=== PATIENT | female | born 1945 | race Caucasian/White ===

== ENCOUNTER 2018-04-01 06:39 | Inpatient (IN) | payer MEDICARE, SELFPAY ==
[2018-04-01] VITALS (19 sets, daily range): BP systolic 122–157; BP diastolic 65–80; PULSE 68–93; RESP 14–29; TEMP 36.2–37.3; O2SAT 95–98; BMI 36.8; BMI 36.1
--- NOTE | 2018-04-01 06:54 | ED.DCSUM_ITS ---
- ER Visit Summary Date of Service: 04/01/18 Chief Complaint: Chest tightness History of Present Illness: The patient is a 72 F who presents for 2-1/2 hours of chest tightness. Patient woke up with the discomfort. She has tightness all across her anterior chest with aching between her shoulder blades, right greater than left. No radiation into the arms, abdomen or neck. Pain is worse with breathing. Patient has associated shortness of breath. She has not taken any aspirin or other medications. She tried to go back to sleep to see if it would get better but it has persisted. No worsening or improvement. Patient has no cardiac history but has history of hypertension and high cholesterol. Family history of coronary artery disease. Patient does not smoke. Patient had recent changes to her blood pressure medications. Patient has no history of VTE, no active cancer in the last 6 months, no recent travel or surgery. No exogenous hormone use. Physical Examination: Vital signs: afebrile, hemodynamically stable, no hypoxia on room air General: well nourished, well developed, in mild distress the patient appears uncomfortable Skin: warm, dry, no rash, no pallor HEENT: normocephalic and atraumatic; PERRL, EOMI, moist mucous membranes Cardiovascular: regular rate and rhythm without murmurs, no peripheral edema, 2 + pulses all distal extremities, including bilat DP pulses Respiratory: No increased work of breathing, lungs are clear to auscultation bilaterally, no rales, rhonchi or wheezing, well-healed surgical incision on the right posterior shoulder Abdominal: Abdomen is soft, nontender with normoactive bowel sounds, no guarding or rebound, no masses MSK: Moves all extremities, no deformities, normal strength Neuro: Awake and alert, oriented ?4. No facial droop, sensation and motor function intact and symmetric Test Results: Abnormal Lab Results 04/01/18 04/01/18 06:47 06:47 WBC 6.6 RBC 5.01 Hgb 13.4 Hct 41.6 MCV 83.0 MCH 26.7 L MCHC 32.2 RDW 13.8 RDW Differential 41.5 Plt Count 199 MPV 10.6 Immature Gran % (Auto) 0.000 Neut % (Auto) 41.2 L Lymph % (Auto) 39.1 [place] % (Auto) 15.6 H Eos % (Auto) 3.5 Baso % (Auto) 0.6 Absolute Neuts (auto) 2.7 Absolute Lymphs (auto) 2.58 Total Counted Not Reportable Sodium 138 Potassium 4.0 Chloride 103 Carbon Dioxide 25.0 Anion Gap 10 BUN 15 Creatinine 0.79 Estim Creat Clear Calc 41.40 Est GFR (MDRD) Af Amer 92 Est GFR (MDRD) Non-Af 76 BUN/Creatinine Ratio 19.0 Glucose 104 Calcium 9.3 Troponin I 0.085 H Clinical Impression(s) from Imaging Studies Chest X-Ray 04/01/18 06:55 IMPRESSION: No acute pulmonary findings. Electronically Signed: Dat Hobson MD at 7:27 EDT Tel , Service support , Medications Given Sodium Chloride () 1,000 mls @ 250 mls/hr IV .Q4H BREA Last Admin: 04/01/18 07:05 Dose: 250 mls/hr Discontinued Medications Aspirin (Aspirin, Baby) 324 mg PO X1 STA Stop: 04/01/18 06:50 Last Admin: 04/01/18 07:05 Dose: 324 mg Nitroglycerin (Nitrostat) 0.4 mg SUBLINGUAL Q5M BREA Stop: 04/01/18 07:11 Last Admin: 04/01/18 07:17 Dose: 0.4 mg Admin: 04/01/18 07:11 Dose: 0.4 mg Admin: 04/01/18 07:06 Dose: 0.4 mg Nitroglycerin (Nitrobid) 1 inch TRANSDERM. X1 ONE Stop: 04/01/18 07:24 Emergency Department Course and Treatment: Patient presents with symptoms concerning for acute coronary syndrome. Pulmonary embolism and aortic dissection are also on the differential as potentially life-threatening causes of her discomfort. EKG showed a sinus rhythm without any ischemic changes. Right-sided EKG was performed and showed no ischemic changes in the right-sided leads. Patient was given aspirin and nitro for pain. She had had improvement of her pain down to 2/3:10 nitro. Nitro paste was placed on her chest. Labs showed no leukocytosis. No electrolyte derangements. Troponin was elevated at 0.085. Patient was discussed with Dr. De Luna, because of the pain between the shoulder blades, we discussed the possibility this could also be an aortic dissection. It was determined that a CTA would be performed prior to any further treatment for acute coronary syndrome. If the CTA is negative for dissection, patient will be started on Lovenox and will be admitted to the hospitalist service. Dr. De Luna will perform as a cardiac catheterization on Tuesday. Patient was updated as to this plan. Final disposition is pending the results of the CTA. Treatment Plan: [] Disposition: [] Impression: acute chest pain, elevated troponin, concern for NSTEMI This note was generated with [employer] dictation software. It may contain incorrect words, spelling, and punctuation that were not noted in review of the chart prior to signing ED Disposition - Plan for ED Patient: Chief Complaint: Chest Pain Referrals: Boo Thomas Jr., MD [Primary Care Provider] -
[2018-04-01 06:57] LABS: Absolute Lymphocyte Count 2.58 X10^3/ul (0.83-4.51); Absolute Neutrophil Count 2.7 X10^3/uL (2.0-7.7); Basophil# 0.04 X10^3/uL; Basophil% 0.6 % (0-1); Eosinophil# 0.23 X10^3/uL; Eosinophils% 3.5 % (0-5); Hematocrit 41.6 % (37-47); Hemoglobin 13.4 g/dl (12.0-15.0); Lymphocyte # 2.58 X10^3/ul (4.0); Lymphocyte % 39.1 % (19-41); Mean Corp Hgb Conc 32.2 g/gl (32-36); Mean Corpuscular Hgb 26.7 pg (27.0-32.0); Mean Platelet Vol. 10.6 fl (6.2-12.0); Monocyte# 1.03 X10^3/uL; Monocyte% 15.6 % (0-10); Neutrophil # 2.72 X10^3/uL (2.7-7.7); Neutrophil % 41.2 % (47-70); POSITIVE COUNT NO; POSITIVE DIFFERENTIAL NO; POSITIVE MORPHOLOGY NO; Platelet Count 199 K/mm3 (150-450); RBC Distribution Width CV 13.8 % (11.6-14.6); RBC Distribution Width SD 41.5 fl (35.1-43.9); Red Blood Count 5.01 M/mm3 (4.2-5.4); White Blood Count 6.6 K/mm3 (4.4-11.0)
[2018-04-01] MEDS: Aspirin 81 MG TAB.CHEW 324 MG PO (07:05)
[2018-04-01] MEDS: 0.9% Normal Saline 1,000 ML 250 ML IV (07:05)
[2018-04-01 07:18] LABS: Anion Gap 10 (5-15); BUN 15 mg/dL (7-18); Calcium,Total 9.3 mg/dL (8.5-10.1); Chloride 103 mmol/L (98-107); Creatinine, Serum 0.79 mg/dL (0.55-1.02); EST Glomerular Filtration Rate 76 mL/min (>60); Est Glom Filt Rate - Afr Amer 92 mL/min (>60); Glucose 104 mg/dL (74-106); Sodium Level 138 mmol/L (136-145)
[2018-04-01] MEDS: Nitroglycerin Oint 1 INCH PACKET TRANSDERM. (07:48)
[2018-04-01] MEDS: Enoxaparin 100 MG/ML Syringe 90 MG SC ×3 (08:59→21:56)
[2018-04-01] MEDS: Clopidogrel Bisulfate 300 MG Tablet PO (11:17)
[2018-04-01] MEDS: hydroCHLOROthiazide 25 MG Tablet PO (11:18)
[2018-04-01] MEDS: Metoprolol Tartrate 50 MG Tablet PO ×2 (11:19→21:56)
[2018-04-01] MEDS: amLODIPine 10 MG Tablet PO (11:19)
[2018-04-01] MEDS: Multivitamins,Therapeutic Tablet 1 TABLET PO (11:19)
--- NOTE | 2018-04-01 12:11 | PCM.CONS.C ---
Problem List (1) Chest pain Status: Acute (2) Troponin I above reference range Status: Acute Reason for Consult Date of Consultation: 04/01/18 Reason for Consultation: Unstable angina, chest pain, hypertension History of Present Illness: The patient is a 72 year old F, nondiabetic, with hypertension, hypercholesterolemia, no tobacco history, no previous known coronary or CVA history. Patient was recently changed from valsartan due to the recall to losartan, but had some side effect issues. Her medicines have been adjusted and this morning developed significant chest pain which was rated an 8 out of 10 in severity, radiating between her shoulder blades. She also had associated shortness of breath as well. She was brought to [facility] ER where she received 3 sublingual nitroglycerin, which completely resolved her chest pain and has some very mild mid scapular back pain. Her blood pressure initially was hypertensive but now has normalized. A CTA of her chest was performed which was negative for pulmonary emboli and aortic dissection. Her initial troponin was 0.085, and decreased to 0.080. EKG performed this morning showed normal sinus rhythm with possible old inferior posterior wall myocardial infarction and poor R-wave progression across the precordium on one EKG. No acute ST segment changes noted. 2D echo with Doppler was performed this morning which demonstrated moderate concentric LVH, normal LV function of 65%, and an RVSP of approximately 31 mmHg. [] Past Medical History Allergies/Adverse Reactions: Allergies No Known Allergies Allergy (Verified 04/01/18 06:39) Home Medications: Ambulatory Orders Medication Instructions Recorded Amlodipine Besylate [Norvasc] 10 mg PO DAILY 04/01/18 Calcium Carbonate [Calcium] 1,200 mg PO DAILY 04/01/18 Hydrochlorothiazide [Hctz] 25 mg PO DAILY 04/01/18 Multivitamins,Therapeutic 1 tablet PO DAILY 04/01/18 [Multivitamin] Olmesartan Medoxomil 20 mg PO DAILY 04/01/18 Simvastatin 20 mg PO QHS 04/01/18 Smoking Status: Never smoker Review of Systems - Review of Systems General: Denies: Fever, Night Sweats, Fatigue Cardiovascular: Reports: Chest Discomfort, Chest Discomfort at Rest, Shortness of Breath, Shortness of Breath at Rest. Denies: Orthopnea, PND, Peripheral Edema, Palpitations, Lightheadedness, Dizziness, Near Syncope, Syncope Respiratory: Denies: Cough, Sputum Production, Hemoptysis Gastrointestinal: Denies: Hematemesis, Hematochezia, Melena Genitourinary: Denies: Dysuria, Hematuria Skin: Denies: Rash Subjectve: Patient laying in bed, no acute distress. Objective: Vital Signs Temp Pulse Resp BP Pulse Ox 99.1 F 82 18 133/66 H 98 04/01/18 10:31 04/01/18 11:19 04/01/18 10:31 04/01/18 10:31 04/01/18 10:31 Oxygen Flow Rate (L/min) 2 Oxygen Delivery Method Room Air Weight: 197 lb 5.019 oz Body Mass Index (BMI) 36.1 General: Awake, Alert, Oriented x 3 HEENT: PERRL, EOMI, Sclera Non Icteric Neck: Supple, Good ROM, No Lymph Node Enlargement Lungs: Clear to auscultation Cardiovascular: Regular Rhythm, Normal S1, Normal S2, No Murmurs, No Rubs, No Gallops Vascular: No Carotid Bruits, Normal Femoral Pulses, Normal Radial Pulses, Normal Dorsalis Pedal Pulse, Normal Posterior Tibial Pulses Abdomen: Bowel Sounds Present, Soft, Non Tender, No HSM, No Organomegaly Extremities: No Cyanosis, No Clubbing, No edema Neurological: No Focal Motor or Sensory Deficit 04/01/18 10:35: Troponin I 0.080 H Rhythm: EKG: As above ECHO: As above Stress Test: Cardiac Cath: PCI: CT Surgery: Holter monitor: EPS: PPM: CXR: Chest CT Scan: Assessment/Plan 1. Unstable angina: The patient appears to have hypertension induced unstable angina with minimally elevated troponins, EKG suggesting possible old inferior posterior wall myocardial infarction with echocardiogram showing relatively intact LV function with an EF around 65% and normal RVSP. CTA of her chest is negative for pulmonary embolism and aortic dissection. Her symptoms were resolved with sublingual nitroglycerin ?3. At this point I recommend the patient continue her rule out for myocardial infarction with a third set of troponins. Recommend baby aspirin, Plavix loading 300 mg ?1 now, followed by 75 mg p.o. daily. In light of the patient's age, family history of coronary disease, abnormal EKG, and indeterminate troponins in the face of unstable angina, I recommend that she undergo a diagnostic coronary angiogram this upcoming Tuesday. In the meantime she will continue losartan 50 mg p.o. daily, metoprolol 50 mg p.o. twice daily, baby aspirin. We can titrate up her losartan to adjust for hypertensive episodes. Recommend continuing hydrochlorothiazide 25 mg p.o. daily. In addition until we do her catheterization would recommend nitroglycerin paste 1 inch every 6 hours as well as Lovenox 1 mg/kg subcu twice daily until the day of catheterization this upcoming Tuesday. 2. Hyperlipidemia: Recommend obtaining a fasting lipid profile. Given her family history and risk factor profile recommend LDL at least less than 100 and less than 70 if it is found that she have significant coronary disease. Continue Lipitor. 3. Thank you very much for the opportunity to participate in the cardiac care of your patient. Consultation time took place between 11:30 AM and 12 PM. Code Visit Inpatient E&M: 84350 Init Hosp L2
--- NOTE | 2018-04-01 13:38 | PCM.HP.STD ---
Problem List (1) Unstable angina Status: Acute History of Present Illness Date of Admission: 04/01/18 Chief Complaint: chest pain The patient is a 72 year old F presents with chest pain at 0300. CP was midsternal and went between her shoulder blades. Received NTG in ED. Now CP has resolved. Never had this before. No history of CAD. Few weeks ago, patient was taken out of valsartan given the recent FDA warnings. Patient was then put on low Felix and just caused her to be fatigued over the past few days has been on olmesartan. [] Past Medical History Medical History: Medical History (Last Updated 04/01/18 @ 13:41 by Mihai Christianson DO) HTN (hypertension) I10 Allergies No Known Allergies Allergy (Verified 04/01/18 06:39) Home Medications: Ambulatory Orders Medication Instructions Recorded Amlodipine Besylate [Norvasc] 10 mg PO DAILY 04/01/18 Calcium Carbonate [Calcium] 1,200 mg PO DAILY 04/01/18 Hydrochlorothiazide [Hctz] 25 mg PO DAILY 04/01/18 Multivitamins,Therapeutic 1 tablet PO DAILY 04/01/18 [Multivitamin] Olmesartan Medoxomil 20 mg PO DAILY 04/01/18 Simvastatin 20 mg PO QHS 04/01/18 Lives: Alone Smoking Status: Never smoker Tobacco Use: Non-smoker Alcohol: None Drugs: None - *Family History Paternal History Items: Heart Disease - at 49 Review of Systems Constitutional: Reports: Malaise. Denies: Anorexia, Chills, Fever, Night Sweats Eyes: Denies: Blurred vision, Eyelid Inflammation HEENT: Denies: Difficulty Hearing, Hard of Hearing Cardiovascular: Reports: Chest Pain. Denies: Edema Respiratory: Denies: Cough, Shortness of Breath Gastrointestinal: Denies: Abdominal Pain, Nausea, Vomiting Genitourinary: Denies: Dysuria Musculoskeletal: Denies: Joint Pain, Joint Tenderness Skin: Denies: Rash, Wounds Neurological: Denies: Numbness, Tingling, Focal weakness Psychiatric: Denies: Anxiety, Depression Hematologic/ Lymphatic: Denies: Easy Bruising, Easy Bleeding, Hx of blood clot Comment: All review of systems are negative except as mentioned in the history of present illness and the other review of systems. VTE Information - Inpt Only VTE Present on Admission: No VTE Pharm Prophylaxis ordered?: Yes Patient Problems: Active and Suspected Problems Chest pain (Acute) Troponin I above reference range (Acute) Unstable angina (Acute) - Physical Exam General: Alert, Cooperative, No apparent distress HEENT: Atraumatic, Normocephalic Oral: Moist Mucosa, No Gingival or Mucosal Lesions/ Ulcerations Neck: No Nodes, Thyroid Normal Size and Texture Lungs: Clear to auscultation, Normal air movement, No rhonchi, No wheeze Cardiovascular: Regular rate, Regular Rhythm, Normal S1, Normal S2, No murmurs Abdomen: Bowel Sounds Present, Soft, Non Tender, Non-Distended, No Hepato-splenomegaly Extremities: No edema, No Calf Tenderness Skin: No rashes, No breakdown Musculoskeletal: No Tenderness to Palpation of Joints or Extremities, No Muscle Wasting Neurological: Muscle tone normal, Coordination normal Psych/Mental Status: Normal Affect, Appropriate Vital Signs Temp Pulse Resp BP Pulse Ox 37.3 C 82 18 133/66 H 98 04/01/18 10:31 04/01/18 11:19 04/01/18 10:31 04/01/18 10:31 04/01/18 10:31 Oxygen Flow Rate (L/min) 2 Oxygen Delivery Method Room Air Weight: 89.5 kg Body Mass Index (BMI) 36.1 Intake and Output for Last 24 Hours 03/30/18 03/31/18 04/01/18 23:59 23:59 23:59 Intake Total 360 / 360 Balance 360 / 360 Laboratory Tests Past 24 Hrs 04/01/18 04/01/18 10:35 12:54 Troponin I 0.080 H 0.090 H Laboratory Results - last 24 hr 04/01/18 04/01/18 04/01/18 06:47 06:47 10:35 WBC 6.6 RBC 5.01 Hgb 13.4 Hct 41.6 MCV 83.0 MCH 26.7 L MCHC 32.2 RDW 13.8 RDW Differential 41.5 Plt Count 199 MPV 10.6 Immature Gran % (Auto) 0.000 Neut % (Auto) 41.2 L Lymph % (Auto) 39.1 [place] % (Auto) 15.6 H Eos % (Auto) 3.5 Baso % (Auto) 0.6 Absolute Neuts (auto) 2.7 Absolute Lymphs (auto) 2.58 Total Counted Not Reportable Sodium 138 Potassium 4.0 Chloride 103 Carbon Dioxide 25.0 Anion Gap 10 BUN 15 Creatinine 0.79 Estim Creat Clear Calc 41.40 Est GFR (MDRD) Af Amer 92 Est GFR (MDRD) Non-Af 76 BUN/Creatinine Ratio 19.0 Glucose 104 Calcium 9.3 Troponin I 0.085 H 0.080 H 04/01/18 12:54 WBC RBC Hgb Hct MCV MCH MCHC RDW RDW Differential Plt Count MPV Immature Gran % (Auto) Neut % (Auto) Lymph % (Auto) [place] % (Auto) Eos % (Auto) Baso % (Auto) Absolute Neuts (auto) Absolute Lymphs (auto) Total Counted Sodium Potassium Chloride Carbon Dioxide Anion Gap BUN Creatinine Estim Creat Clear Calc Est GFR (MDRD) Af Amer Est GFR (MDRD) Non-Af BUN/Creatinine Ratio Glucose Calcium Troponin I 0.090 H Clinical Impression(s) from Imaging Studies Chest X-Ray 04/01/18 06:55 IMPRESSION: No acute pulmonary findings. Electronically Signed: Dat Hobson MD at 7:27 EDT Tel , Service support , Chest CTA 04/01/18 07:25 IMPRESSION: 1. No CTA demonstrated pulmonary embolism or arterial dissection. 2. Hiatal hernia. 3. Multiple hepatic cystic lesions. Electronically Signed: My Partida MD at 8:39 EDT , Service support , Assessment/Plan All Active Problems Chest pain (Acute) Troponin I above reference range (Acute) Unstable angina (Acute) 1. Unstable angina Troponins were slightly elevated 0.085. Loaded with Plavix, started on aspirin. Patient also started on weight-based Lovenox. Seen by cardiology and the plan is for a left heart catheterization on the . Score of 7 in MACY score of 3 2. Hypertension Continue with her home medications 3. DVT prophylaxis: Patient is currently anticoagulated Code Visit Inpatient E&M: 23689 Init Hosp L3
[2018-04-01] MEDS: 0.9% NaCl Peripheral Flush Adult/Peds IV (19:47)
[2018-04-01] MEDS: Atorvastatin Calcium 10 MG Tablet PO (21:56)
[2018-04-02] VITALS (12 sets, daily range): BP systolic 113–127; BP diastolic 65–70; PULSE 58–72; RESP 14–18; TEMP 36.3–36.9; O2SAT 95–96
[2018-04-02] MEDS: Acetaminophen 325 MG Tablet 650 MG PO (02:48)
[2018-04-02 07:25] LABS: Anion Gap 13 (5-15); BUN 13 mg/dL (7-18); BUN/Creat Ratio 16.5 RATIO (10-20); Calcium,Total 8.9 mg/dL (8.5-10.1); Chloride 103 mmol/L (98-107); Cholesterol 140 mg/dL (200); Creatinine, Serum 0.79 mg/dL (0.55-1.02); EST Glomerular Filtration Rate 77 mL/min (>60); Est Glom Filt Rate - Afr Amer 93 mL/min (>60); Glucose 95 mg/dL (74-106); High Density Lipoprotein 48 mg/dL; Potassium 4.1 mmol/L (3.5-5.1); Sodium Level 140 mmol/L (136-145); Triglycerides 225 mg/dL; Very Low Density Lipoprotein 45 mg/dL (5-40)
[2018-04-02] MEDS: Enoxaparin 100 MG/ML Syringe 90 MG SC ×2 (08:41→22:01)
[2018-04-02] MEDS: Aspirin E.C. 81 MG Tablet PO (08:41)
[2018-04-02] MEDS: Metoprolol Tartrate 50 MG Tablet PO ×2 (08:41→22:01)
[2018-04-02] MEDS: Multivitamins,Therapeutic Tablet 1 TABLET PO (08:41)
[2018-04-02] MEDS: hydroCHLOROthiazide 25 MG Tablet PO (08:41)
[2018-04-02] MEDS: Calcium Carbonate 500 MG Tablet 1000 MG PO (08:42)
[2018-04-02] MEDS: amLODIPine 10 MG Tablet PO (08:42)
[2018-04-02] MEDS: Clopidogrel Bisulfate 75 MG Tablet PO (08:42)
--- NOTE | 2018-04-02 10:39 | PCM.PN.CARD ---
Subjectve: Patient doing well this morning, chest pain has completely resolved. Telemetry showed normal sinus rhythm, no ventricular arrhythmias. Objective: Vital Signs Temp Pulse Resp BP Pulse Ox 97.4 F L 72 18 126/67 H 95 04/02/18 08:45 04/02/18 08:45 04/02/18 08:45 04/02/18 08:45 04/02/18 08:45 Oxygen Flow Rate (L/min) 2 Oxygen Delivery Method Room Air Weight: 197 lb 5.019 oz Body Mass Index (BMI) 36.1 Intake and Output for Last 24 Hours 03/31/18 04/01/18 04/02/18 23:59 23:59 23:59 Intake Total 960 / 960 60 / 60 Balance 960 / 960 60 / 60 General: Awake, Alert, Oriented x 3 HEENT: PERRL, EOMI, Sclera Non Icteric Neck: Supple, Good ROM, No Lymph Node Enlargement Lungs: Clear to auscultation Cardiovascular: Regular Rhythm, Normal S1, Normal S2, No Murmurs, No Rubs, No Gallops Vascular: No Carotid Bruits, Normal Femoral Pulses, Normal Radial Pulses, Normal Dorsalis Pedal Pulse, Normal Posterior Tibial Pulses Abdomen: Bowel Sounds Present, Soft, Non Tender, No HSM, No Organomegaly Extremities: No Cyanosis, No Clubbing, No edema Neurological: No Focal Motor or Sensory Deficit 04/01/18 10:35: Troponin I 0.080 H 04/01/18 12:54: Troponin I 0.090 H 04/02/18 06:05: Sodium 140, Potassium 4.1, Chloride 103, Carbon Dioxide 24.0, Anion Gap 13, BUN 13, Creatinine 0.79, Est GFR (MDRD) Af Amer 93, Est GFR (MDRD) Non-Af 77, BUN/Creatinine Ratio 16.5, Glucose 95, Calcium 8.9, Triglycerides 225 H, Cholesterol 140, LDL Cholesterol 47, VLDL Cholesterol 45 H, HDL Cholesterol 48 04/02/18 06:05: Triglycerides Cancelled, Cholesterol Cancelled, LDL Cholesterol Cancelled, VLDL Cholesterol Cancelled, HDL Cholesterol Cancelled Rhythm: EKG: ECHO: Stress Test: Cardiac Cath: PCI: CT Surgery: Holter monitor: EPS: PPM: CXR: Chest CT Scan: Medical Necessity - Tobacco Use Smoking Status: Never smoker Tobacco Use: Non-smoker Assessment/Plan 1. Unstable angina: The patient appears to have hypertension induced unstable angina with minimally elevated troponins, EKG suggesting possible old inferior posterior wall myocardial infarction with echocardiogram showing relatively intact LV function with an EF around 65% and normal RVSP. CTA of her chest is negative for pulmonary embolism and aortic dissection. Her symptoms were resolved with sublingual nitroglycerin ?3. Patient's troponins were 0.085, 0.080, and 0.090. Recommend baby aspirin, Plavix loading 300 mg ?1 now, followed by 75 mg p.o. daily. In light of the patient's age, family history of coronary disease, abnormal EKG, and indeterminate troponins in the face of unstable angina, I recommend that she undergo a diagnostic coronary angiogram tomorrow morning. In the meantime she will continue losartan 50 mg p.o. daily, metoprolol 50 mg p.o. twice daily, baby aspirin. We can titrate up her losartan to adjust for hypertensive episodes. Recommend continuing hydrochlorothiazide 25 mg p.o. daily. Blood pressure is now optimized. In addition until we do her catheterization would recommend nitroglycerin paste 1 inch every 6 hours as well as Lovenox 1 mg/kg subcu twice daily until the day of catheterization this upcoming Tuesday. 2. Hyperlipidemia: Recommend obtaining a fasting lipid profile. Given her family history and risk factor profile recommend LDL at least less than 100 and less than 70 if it is found that she have significant coronary disease. Continue Lipitor. 3. Thank you very much for the opportunity to participate in the cardiac care of your patient. Left heart catheterization to follow tomorrow morning. Code Visit Inpatient E&M: 20556 Subs Hosp L2
--- NOTE | 2018-04-02 11:28 | PCM.PN.HOSP ---
Patient Problems: Active and Suspected Problems (Last Updated 04/01/18 @ 13:41 by Mihai Christianson DO) Chest pain (Acute) Troponin I above reference range (Acute) Unstable angina (Acute) Subjective: No further chest pain. Vitals/I&O's: Vital Signs Temp Pulse Resp BP Pulse Ox 36.3 C L 72 18 126/67 H 95 04/02/18 08:45 04/02/18 08:45 04/02/18 08:45 04/02/18 08:45 04/02/18 08:45 Oxygen Flow Rate (L/min) 2 Oxygen Delivery Method Room Air Weight: 89.5 kg Body Mass Index (BMI) 36.1 Intake and Output for Last 24 Hours 03/31/18 04/01/18 04/02/18 23:59 23:59 23:59 Intake Total 960 / 960 60 / 60 Balance 960 / 960 60 / 60 General: Alert, No apparent distress HEENT: Atraumatic, Normocephalic Oral: Moist Mucosa, No Gingival or Mucosal Lesions/ Ulcerations Neck: No Nodes, Thyroid Normal Size and Texture Lungs: Clear to auscultation, Normal air movement, No rhonchi, No wheeze Cardiovascular: Regular rate, Regular Rhythm, Normal S1, Normal S2, No murmurs Abdomen: Bowel Sounds Present, Soft, Non Tender, Non-Distended Extremities: No edema, No Calf Tenderness Laboratory Results 04/01/18 12:54: Troponin I 0.090 H 04/02/18 06:05: Sodium 140, Potassium 4.1, Chloride 103, Carbon Dioxide 24.0, Anion Gap 13, BUN 13, Creatinine 0.79, Estim Creat Clear Calc 41.40, Est GFR (MDRD) Af Amer 93, Est GFR (MDRD) Non-Af 77, BUN/Creatinine Ratio 16.5, Glucose 95, Calcium 8.9, Triglycerides 225 H, Cholesterol 140, LDL Cholesterol 47, VLDL Cholesterol 45 H, HDL Cholesterol 48 04/02/18 06:05: Triglycerides Cancelled, Cholesterol Cancelled, LDL Cholesterol Cancelled, VLDL Cholesterol Cancelled, HDL Cholesterol Cancelled Current Medications Acetaminophen (Tylenol) 650 mg PO Q6H PRN PRN PRN Reason: Mild Pain (1-3)/Temp > 100.7 F Last Admin: 04/02/18 02:48 Dose: 650 mg Amlodipine Besylate (Norvasc) 10 mg PO DAILY [facility] Last Admin: 04/02/18 08:42 Dose: 10 mg Aspirin (Ecotrin) 81 mg PO DAILY@0800 [facility] Last Admin: 04/02/18 08:41 Dose: 81 mg Atorvastatin Calcium (Lipitor) 10 mg PO QHS [facility] Last Admin: 04/01/18 21:56 Dose: 10 mg Calcium Carbonate (Tums) 1,000 mg PO DAILY [facility] Last Admin: 04/02/18 08:42 Dose: 1,000 mg Clopidogrel Bisulfate (Plavix) 75 mg PO DAILY [facility] Last Admin: 04/02/18 08:42 Dose: 75 mg Diphenhydramine HCl (Benadryl) 50 mg PO X1 ONE Stop: 04/03/18 08:01 Enoxaparin Sodium (Lovenox) 90 mg 1 mg/kg (90 mg) SC Q12 [facility] Last Admin: 04/02/18 08:41 Dose: 90 mg Hydrochlorothiazide (Hctz) 25 mg PO DAILY [facility] Last Admin: 04/02/18 08:41 Dose: 25 mg Sodium Chloride () 1,000 mls @ 0 mls/hr IV .Q0M [facility] PRN Reason: KVO Losartan Potassium (Cozaar) 50 mg PO DAILY [facility] Last Admin: 04/02/18 08:41 Dose: Not Given Magnesium Hydroxide (Milk Of Magnesia) 30 ml PO DAILY PRN PRN Reason: Constipation Metoprolol Tartrate (Lopressor (Beta David)) 50 mg PO BID [facility] Last Admin: 04/02/18 08:41 Dose: 50 mg Morphine Sulfate () 2 - 4 mg IV Q4H PRN PRN PRN Reason: MOD-SEVERE PAIN (4-10/10) Multivitamins (Multivitamin) 1 tablet PO DAILYCM [facility] Last Admin: 04/02/18 08:41 Dose: 1 tablet Nitroglycerin (Nitrostat) 0.4 mg SUBLINGUAL Q5M PRN PRN Reason: CHEST PAIN Ondansetron HCl (Zofran) 4 mg IV Q8H PRN PRN PRN Reason: NAUSEA Sodium Chloride () 5 - 30 ml IV UD PRN PRN Reason: SALINE FLUSH Last Admin: 04/01/18 19:47 Dose: 10 ml Medical Necessity - Tobacco Use Smoking Status: Never smoker Tobacco Use: Non-smoker Assessment/Plan All Active Problems (Last Updated 04/01/18 @ 13:41 by Mihai Christianson DO) Chest pain (Acute) Troponin I above reference range (Acute) Unstable angina (Acute) 1. Unstable angina Troponins were slightly elevated 0.09. Loaded with Plavix, started on aspirin. Patient also started on weight-based Lovenox. Seen by cardiology and the plan is for a left heart catheterization on the . Score of 7 in MACY score of 3 2. Hypertension stable Continue with her home medications 3. DVT prophylaxis: Patient is currently anticoagulated Code Visit Inpatient E&M: 91931 Subs Hosp L2
[2018-04-02] MEDS: Atorvastatin Calcium 10 MG Tablet PO (22:01)
[2018-04-03] VITALS (17 sets, daily range): BP systolic 105–124; BP diastolic 56–67; PULSE 58–78; RESP 16–18; TEMP 36.8–37; O2SAT 93–97
[2018-04-03 05:17] LABS: Bacteria 0 SEEN /hpf (None Seen); Mucous, Urine 0 SEEN /hpf (<or=2+); Squamous Epithelial Cells - UA 0 SEEN /hpf (5-10)
[2018-04-03] MEDS: Metoprolol Tartrate 50 MG Tablet PO (05:39)
[2018-04-03] MEDS: amLODIPine 10 MG Tablet PO (05:39)
[2018-04-03] MEDS: Clopidogrel Bisulfate 75 MG Tablet PO (05:39)
[2018-04-03] MEDS: Aspirin E.C. 81 MG Tablet PO (05:40)
[2018-04-03 05:42] LABS: Absolute Lymphocyte Count 1.85 X10^3/ul (0.83-4.51); Absolute Neutrophil Count 2.3 X10^3/uL (2.0-7.7); Basophil# 0.04 X10^3/uL; Basophil% 0.8 % (0-1); Eosinophils% 3.8 % (0-5); Hematocrit 40.1 % (37-47); Hemoglobin 13.2 g/dl (12.0-15.0); Lymphocyte # 1.85 X10^3/ul (4.0); Lymphocyte % 35.5 % (19-41); Mean Corp Hgb Conc 32.9 g/gl (32-36); Mean Corpuscular Hgb 27.3 pg (27.0-32.0); Mean Platelet Vol. 10.5 fl (6.2-12.0); Monocyte# 0.82 X10^3/uL; Monocyte% 15.7 % (0-10); Neutrophil % 44.2 % (47-70); Platelet Count 215 K/mm3 (150-450); RBC Distribution Width CV 13.9 % (11.6-14.6); RBC Distribution Width SD 41.9 fl (35.1-43.9); Red Blood Count 4.83 M/mm3 (4.2-5.4); White Blood Count 5.2 K/mm3 (4.4-11.0)
[2018-04-03 05:52] LABS: Anion Gap 13 (5-15); BUN 12 mg/dL (7-18); BUN/Creat Ratio 13.8 RATIO (10-20); Calcium,Total 9.2 mg/dL (8.5-10.1); Chloride 102 mmol/L (98-107); Creatinine, Serum 0.87 mg/dL (0.55-1.02); EST Glomerular Filtration Rate 68 mL/min (>60); Est Glom Filt Rate - Afr Amer 83 mL/min (>60); Estimated Creatinine Clearance 47.59 ml/min; Glucose 96 mg/dL (74-106); Sodium Level 142 mmol/L (136-145)
[2018-04-03 05:53] LABS: International Normalized Ratio 1.1
[2018-04-03 05:54] LABS: Partial Thromboplast Time 33.9 Seconds (24.1-36.2)
[2018-04-03 05:58] LABS: POSITIVE COUNT NO; POSITIVE DIFFERENTIAL NO; POSITIVE MORPHOLOGY NO
[2018-04-03 06:22] LABS: Color, Urine Yellow (Yellow); Glucose, Dipstick Normal (Normal); Ketone-Dipstick Negative (Negative); Leukocyte Esterase-Dipstick 500 /ul (Negative); Nitrite-Dipstick Negative (Negative); Occult Blood-Urine 250 /ul (Negative); Protein-Dipstick Negative (Negative); Urine Bilirubin Dipstick Negative (Negative); Urine Clarity Clear (Clear); Urine Urobilinogen Normal (Normal); Urine pH 6.5 (5.0 - 8.0)
[2018-04-03 06:51] LABS: Red Blood Cells-Urine 0-5 SEEN /hpf (0-5); White Blood Cells 5-10 SEEN /hpf (0-5)
[2018-04-03] MEDS: DiphenhydrAMINE 25 MG Capsule 50 MG PO (09:30)
--- NOTE | 2018-04-03 09:30 | NURSING ---
gave report to photo lab technician RN
[2018-04-03] MEDS: 0.9% NaCl Peripheral Flush Adult/Peds IV (09:33)
--- NOTE | 2018-04-03 09:40 | CASEMGMT ---
INSURANCE REVIEW for [facility] facilities if transfer is recommended. [facility], [facility], [facility], [facility], [facility] For further questions, please contact Case Management. Helena MATTAN RN ACM
--- NOTE | 2018-04-03 11:15 | CASEMGMT ---
RN CM Assessment completed. See Link -pt independent prior to admission. Plan is for heart cath today. No dc needs identified @ this time. Helena MATTAN RN ACM
--- NOTE | 2018-04-03 11:55 | PCM.DC ---
- Discharge Diagnoses Current Active Problems: Current Active and Chronic Problems (Last Updated 04/01/18 @ 13:41 by Mihai Christianson DO) Chest pain (Acute) Troponin I above reference range (Acute) Unstable angina (Acute) You will use the following diet at home:: Cardiac Your food should be the consistency of: Regular Your liquids should be the consistency of: Regular/Thin Discharge Activity: Return to Normal Activity May resume sexual activity in: No Restrictions Weight Bearing Status: Weight bearing as tolerated Call your doctor if you observe: Shortness of breath, Dizziness, Chest pain, Increased palpitations (irregular heartbeat) Allergies/Adverse Reactions: Allergies No Known Allergies Allergy (Verified 04/01/18 06:39) Medications to take at Discharge Amlodipine Besylate [Norvasc] 10 mg PO DAILY 04/01/18 Calcium Carbonate [Calcium] 1,200 mg PO DAILY 04/01/18 Hydrochlorothiazide [Hctz] 25 mg PO DAILY 04/01/18 Multivitamins,Therapeutic [Multivitamin] 1 tablet PO DAILY 04/01/18 Olmesartan Medoxomil 20 mg PO DAILY 04/01/18 Simvastatin 20 mg PO QHS 04/01/18 Aspirin E.C. [Ecotrin] 81 mg PO DAILY@0800 #30 tab 04/03/18 The following prescriptions were given: Aspirin E.C. [Ecotrin] 81 mg PO DAILY@0800 #30 tab Primary Care Physician: Boo Thomas Jr., MD [Primary Care Provider] - Please follow up with your Primary Care Physician in: one week Test Results: Test results from this visit will be discussed in further detail at your follow-up appointment, if applicable. Please Follow Up With: Matt De Luna MD When: two weeks Proposed Discharge Date: 04/03/18
--- NOTE | 2018-04-03 11:58 | PCM.DC.SUM ---
Discharge Date and Diagnosis Date of Admission: 04/01/18 Date of Discharge: 04/03/18 - Primary Discharge Diagnosis Active and Suspected Problems (Last Updated 04/01/18 @ 13:41 by Mihai Christianson DO) Chest pain (Acute) Troponin I above reference range (Acute) Unstable angina (Acute) Hospital Course and Treatment Imaging Results: Diagnostic Data Chest X-Ray 04/01/18 06:55 IMPRESSION: No acute pulmonary findings. Electronically Signed: Dat Hobson MD at 7:27 EDT Tel , Service support , Chest CTA 04/01/18 07:25 IMPRESSION: 1. No CTA demonstrated pulmonary embolism or arterial dissection. 2. Hiatal hernia. 3. Multiple hepatic cystic lesions. Electronically Signed: My Partida MD at 8:39 EDT , Service support , Laboratory Tests 04/01/18 04/01/18 04/01/18 06:47 06:47 10:35 WBC 6.6 RBC 5.01 Hgb 13.4 Hct 41.6 MCV 83.0 MCH 26.7 L MCHC 32.2 RDW 13.8 RDW Differential 41.5 Plt Count 199 MPV 10.6 Immature Gran % (Auto) 0.000 Neut % (Auto) 41.2 L Lymph % (Auto) 39.1 [place] % (Auto) 15.6 H Eos % (Auto) 3.5 Baso % (Auto) 0.6 Absolute Neuts (auto) 2.7 Absolute Lymphs (auto) 2.58 Total Counted Not Reportable PT INR APTT Sodium 138 Potassium 4.0 Chloride 103 Carbon Dioxide 25.0 Anion Gap 10 BUN 15 Creatinine 0.79 Estim Creat Clear Calc 41.40 Est GFR (MDRD) Af Amer 92 Est GFR (MDRD) Non-Af 76 BUN/Creatinine Ratio 19.0 Glucose 104 Calcium 9.3 Troponin I 0.085 H 0.080 H Triglycerides Cholesterol LDL Cholesterol VLDL Cholesterol HDL Cholesterol Urine Color Urine Clarity Urine pH Ur Specific [place] Urine Protein Urine Glucose (UA) Urine Ketones Urine Occult Blood Urine Nitrite Urine Bilirubin Urine Urobilinogen Ur Leukocyte Esterase Urine RBC Urine WBC Ur Squamous Epith Cells Urine Bacteria Urine Mucus 04/01/18 04/02/18 04/02/18 12:54 06:05 06:05 WBC RBC Hgb Hct MCV MCH MCHC RDW RDW Differential Plt Count MPV Immature Gran % (Auto) Neut % (Auto) Lymph % (Auto) [place] % (Auto) Eos % (Auto) Baso % (Auto) Absolute Neuts (auto) Absolute Lymphs (auto) Total Counted PT INR APTT Sodium 140 Potassium 4.1 Chloride 103 Carbon Dioxide 24.0 Anion Gap 13 BUN 13 Creatinine 0.79 Estim Creat Clear Calc 41.40 Est GFR (MDRD) Af Amer 93 Est GFR (MDRD) Non-Af 77 BUN/Creatinine Ratio 16.5 Glucose 95 Calcium 8.9 Troponin I 0.090 H Triglycerides 225 H Cancelled Cholesterol 140 Cancelled LDL Cholesterol 47 Cancelled VLDL Cholesterol 45 H Cancelled HDL Cholesterol 48 Cancelled Urine Color Urine Clarity Urine pH Ur Specific [place] Urine Protein Urine Glucose (UA) Urine Ketones Urine Occult Blood Urine Nitrite Urine Bilirubin Urine Urobilinogen Ur Leukocyte Esterase Urine RBC Urine WBC Ur Squamous Epith Cells Urine Bacteria Urine Mucus 04/03/18 04/03/18 04/03/18 04:00 05:15 05:15 WBC 5.2 RBC 4.83 Hgb 13.2 Hct 40.1 MCV 83.0 MCH 27.3 MCHC 32.9 RDW 13.9 RDW Differential 41.9 Plt Count 215 MPV 10.5 Immature Gran % (Auto) 0.000 Neut % (Auto) 44.2 L Lymph % (Auto) 35.5 [place] % (Auto) 15.7 H Eos % (Auto) 3.8 Baso % (Auto) 0.8 Absolute Neuts (auto) 2.3 Absolute Lymphs (auto) 1.85 Total Counted Not Reportable PT 14.0 INR 1.1 APTT 33.9 Sodium Potassium Chloride Carbon Dioxide Anion Gap BUN Creatinine Estim Creat Clear Calc Est GFR (MDRD) Af Amer Est GFR (MDRD) Non-Af BUN/Creatinine Ratio Glucose Calcium Troponin I Triglycerides Cholesterol LDL Cholesterol VLDL Cholesterol HDL Cholesterol Urine Color Yellow Urine Clarity Clear Urine pH 6.5 Ur Specific [place] 1.010 Urine Protein Negative Urine Glucose (UA) Normal Urine Ketones Negative Urine Occult Blood 250 H Urine Nitrite Negative Urine Bilirubin Negative Urine Urobilinogen Normal Ur Leukocyte Esterase 500 H Urine RBC 0-5 SEEN Urine WBC 5-10 SEEN Ur Squamous Epith Cells 0 SEEN Urine Bacteria 0 SEEN Urine Mucus 0 SEEN 04/03/18 05:15 WBC RBC Hgb Hct MCV MCH MCHC RDW RDW Differential Plt Count MPV Immature Gran % (Auto) Neut % (Auto) Lymph % (Auto) [place] % (Auto) Eos % (Auto) Baso % (Auto) Absolute Neuts (auto) Absolute Lymphs (auto) Total Counted PT INR APTT Sodium 142 Potassium 4.0 Chloride 102 Carbon Dioxide 27.0 Anion Gap 13 BUN 12 Creatinine 0.87 Estim Creat Clear Calc 47.59 Est GFR (MDRD) Af Amer 83 Est GFR (MDRD) Non-Af 68 BUN/Creatinine Ratio 13.8 Glucose 96 Calcium 9.2 Troponin I Triglycerides Cholesterol LDL Cholesterol VLDL Cholesterol HDL Cholesterol Urine Color Urine Clarity Urine pH Ur Specific [place] Urine Protein Urine Glucose (UA) Urine Ketones Urine Occult Blood Urine Nitrite Urine Bilirubin Urine Urobilinogen Ur Leukocyte Esterase Urine RBC Urine WBC Ur Squamous Epith Cells Urine Bacteria Urine Mucus Cardiology-Dr. De Luna Operations: None Procedures: 2-D Echocardiogram, Cardiac catheterization Summary of Care Provided: The patient is a 72 year old F with a history of high blood pressure. She was admitted by the ED on 04/01/2018 with complaint of chest pain which is midsternal Kyle radiated to between her shoulder blades. Chest pain resolved with administration of NTG in the ED. She hopkins no history of CAD and had recently been taken off valsartan due to FDA warnings. She was then started on losartan; however, this also caused her to be fatigued, so she was then started on olmesartan. Chest x-ray was negative and CT angiogram showed hiatal hernia with no evidence of pulmonary embolism or aortic dissection. Troponin was slightly elevated at 0.085. MACY score was 7. She was admitted and managed for unstable angina. She was loaded with Plavix and started on aspirin and started on therapeutic dose of Lovenox. Cardiology was consulted and she had a cardiac cath on 04/03/2018 which showed normal patent coronaries. Conclusions of N normal left ventricular size with normal wall motion and normal systolic function and nonobstructive coronary arteries. Plan per cardiology was for risk factor modification and indefinite use of aspirin. She will stop Plavix and continue antihypertension antilipid medications and follow-up. Patient was seen and examined today prior to discharge. She had no complaints and felt well. She denied any fever chills, any cough or chest pain, any shortness of breath, any abdominal pain, any diarrhea vomiting. Review of systems was otherwise negative. Labs and vitals were reviewed. o/e: Vital Signs Height 5 ft 2 in Weight: 197 lb 5.019 oz Weight in Pounds 197.3 lbs Pulse Ox 94 Temperature 98.3 F Pulse Rate 65 Respiratory Rate 16 Blood Pressure 105/59 Blood Pressure Position Semi-Fowlers []General: Alert, Cooperative, No apparent distress HEENT: Atraumatic, Normocephalic Oral: Moist Mucosa, No Gingival or Mucosal Lesions/ Ulcerations Neck: No Nodes, Thyroid Normal Size and Texture Lungs: Clear to auscultation, Normal air movement, No rhonchi, No wheeze Cardiovascular: Regular rate, Regular Rhythm, Normal S1, Normal S2, No murmurs Abdomen: Bowel Sounds Present, Soft, Non Tender, Non-Distended, No Hepato-splenomegaly Extremities: No edema, No Calf Tenderness Skin: No rashes, No breakdown Musculoskeletal: No Tenderness to Palpation of Joints or Extremities, No Muscle Wasting Neurological: Muscle tone normal, Coordination normal Psych/Mental Status: Normal Affect, Appropriate Plan is to discharge patient home today. She is continue taking amlodipine and hydrochlorothiazide as well as olmesartan. She is continue taking simvastatin 20 mg nightly. Patient was given a prescription for aspirin 81 mg daily. She is to follow-up with her primary care doctor in 1 week and follow-up with cardiology in 2 weeks for medications to be adjusted as needed. Home medications reviewed and reconciled prior to discharge. Discharge Diet: 2000 mg Sodium Diet Discharge Activity: Return to Normal Activity May resume sexual activity in: No Restrictions Weight Bearing Status: Weight bearing as tolerated Call your doctor if you observe: Shortness of breath, Dizziness, Chest pain, Increased palpitations (irregular heartbeat) Home Medications: Medications to take at Discharge Amlodipine Besylate [Norvasc] 10 mg PO DAILY 04/01/18 Calcium Carbonate [Calcium] 1,200 mg PO DAILY 04/01/18 Hydrochlorothiazide [Hctz] 25 mg PO DAILY 04/01/18 Multivitamins,Therapeutic [Multivitamin] 1 tablet PO DAILY 04/01/18 Olmesartan Medoxomil 20 mg PO DAILY 04/01/18 Simvastatin 20 mg PO QHS 04/01/18 Aspirin E.C. [Ecotrin] 81 mg PO DAILY@0800 #30 tab 04/03/18 Following Prescrptions Were Given to Patient: Aspirin E.C. [Ecotrin] 81 mg PO DAILY@0800 #30 tab Primary Care Physician: Boo Thomas Jr., MD [Primary Care Provider] - Please follow up with your Primary Care Physician in: one week Please Follow Up With: Matt De Luna MD When: two weeks Disposition: Home Minutes spent on discharge:: 40 Patient Condition:: Stable Medical Necessity - Tobacco Use Smoking Status: Never smoker Tobacco Use: Non-smoker Meaningful Use Info Meaningful Use Diagnoses (Choose all that apply): None applicable Code Visit Inpatient E&M: 47194 Disch Hosp
[2018-04-03] MEDS: Multivitamins,Therapeutic Tablet 1 TABLET PO (12:05)
[2018-04-03] MEDS: hydroCHLOROthiazide 25 MG Tablet PO (12:05)
[2018-04-03] MEDS: Calcium Carbonate 500 MG Tablet 1000 MG PO (12:05)
--- NOTE | 2018-04-03 15:05 | NURSING ---
walked patient in hallway, bedrest complete, tolerated well, dressing c/d/i
== END 2018-04-03 15:15 | disposition home or self-care (01) | DRG 287 ==
LOC: ED 09:05 → PCU 09:26
PROVIDERS: Internal Medicine Cardiovascular Disease; Emergency Provider Emergency Medicine; Family Provider Internal Medicine; PCP Internal Medicine; Visit Provider Student in an Organized Health Care Education/Training Program
DX: I20.0 Unstable angina (principal); R74.8 Abnormal levels of other serum enzymes; K44.9 Diaphragmatic hernia without obstruction or gangrene; I10 Essential (primary) hypertension
CPT/HCPCS: 36415; 71045; 71275; 80048; 80061; 81001; 84484; 85025; 85610; 85730; 93005; 93306; 93458; 99152; 99282; J7030; Q9957; Q9967; A4216; C1769; C1894; C8929

== ENCOUNTER → 2018-11-28 15:01 | Outpatient (CLI) | payer MEDICARE, SELFPAY ==
--- NOTE | 2018-11-28 15:03 | BI_ITS ---
MAMMOGRAPHY - BILATERAL SCREENING 3-D TOMOSYNTHESIS REASON FOR EXAM: Female, 73 years old. Bilateral Screening 3-D tomosynthesis PERTINENT HISTORY: No significant family history. TECHNIQUE: 2-D mammograms and 3-D Tomosynthesis of the breast (s) were performed. CAD was performed. COMPARISON: November 04, 2017. FINDINGS: The breast composition is almost entirely fat. Scattered benign calcifications are seen. No dense spiculated masses or suspicious microcalcifications are identified. No architectural distortion is identified. There is no skin thickening or retraction. There has been no significant change since the prior study. BI/SCREENING MAMM (CAD), BILAT IMPRESSION: No mammographic signs of malignancy. Routine yearly mammograms recommended. ASSESSMENT CATEGORY: BIRADS Category 1: Negative. A letter regarding these results will be sent to the patient by the facility within 30 days. FOLLOW UP RECOMMENDATION: Yearly follow up mammogram recommended. (A) Approximately 10% of breast cancers are not detected by mammography. A normal mammogram should not delay biopsy of a clinically suspicious abnormality. Electronically Signed: Preston Muñoz MD at 8:07 EDT , Service support ,
--- NOTE | 2018-11-28 15:11 | BD_ITS ---
STUDY: DUAL ENERGY X-RAY ABSORPTIOMETRY / DXA REASON FOR EXAM: Female, 73 years old. Early menopause. Loss of height. TECHNIQUE: Bone Mineral Density (BMD) measurements of lumbar spine and bilateral hips were obtained. COMPARISON: None. FINDINGS: Lumbar Spine (L1-L4): g/cm2 (1.424) / T-score (2.0) / Z-score (3.7) Findings are suggestive of normal bone density with a low fracture risk. Left Femur Total: g/cm2 (1.139) / T-score (1.0) / Z-score (2.6) Left Femoral Neck: g/cm2 (1.039) / T-score (0.0) / Z-score (1.7) Right Femur Total: g/cm2 (1.030) / T-score (0.2) / Z-score (1.7) Right Femoral Neck: g/cm2 (0.999) / T-score (-0.3) / Z-score (1.5) BD/Dexa Bone Density Study IMPRESSION: The patient is considered normal as outlined below according to World [employer] Organization (WHO) criteria with a low fracture risk. Reference Information: The T-score is the number of standard deviations above or below the standard which is normal for young adults at their peak bone mineral density. The World Health Organization (WHO) interprets the T-scores as follows: Above -1 Normal bone density Between -1 and -2.5 Osteopenia Equal to / or below -2.5 Osteoporosis As a practical clinical guideline, osteopenia may be graded as follows: Mild -1 through -1.5 Moderate -1.6 through -2.0 Severe -2.1 through -2.4 The Z-score is the number of standard deviations above or below age-matched controls. A Z-score of less than -1.5 would be considered abnormal. References: 1. NIH Osteoporosis and Related Bone Diseases http://www.osteo.org 2. International Society for Clinical Densitometry http://www.iscd.org 3. National Osteoporosis Foundation http://www.nof.org Electronically Signed: Tyrell Quintana, at 8:42 EDT , Service support ,
== END ==
PROVIDERS: Family Provider Family Medicine; PCP Family Medicine; Referring Provider Family Medicine; Visit Provider Family Medicine
DX: Z12.31 Encounter for screening mammogram for malignant neoplasm of breast (principal)
CPT/HCPCS: 77063; 77067; 77080

== ENCOUNTER → 2019-03-22 15:42 | Outpatient (CLI) | payer MEDICARE, SELFPAY ==
[2018-04-19 13:31] VITALS: BMI 35.8
--- NOTE | 2019-03-22 15:46 | RAD_ITS ---
STUDY: X-RAY - LEFT SHOULDER REASON FOR EXAM: Female, 73 years old. Chronic pain TECHNIQUE: 4 view(s) of the shoulder. COMPARISON: None. FINDINGS: Narrowed glenohumeral articulation. Normal acromioclavicular joint. Normal acromion. Normal humeral head and visualized proximal humerus. The soft tissue structures are unremarkable. Normal visualized pulmonary apex. RAD/Shoulder min 2 Views IMPRESSION: Mild degenerative changes. Electronically Signed: Amandeep Carreon MD at 16:07 EDT , Service support ,
[2019-03-22 17:55] LABS: Anion Gap 8 (5-15); BUN 15 mg/dL (7-18); BUN/Creat Ratio 19.2 RATIO (10-20); Calcium,Total 9.5 mg/dL (8.5-10.1); Chloride 102 mmol/L (98-107); Cholesterol 163 mg/dL (200); Creatinine, Serum 0.78 mg/dL (0.55-1.02); EST Glomerular Filtration Rate 77 mL/min (>60); Est Glom Filt Rate - Afr Amer 93 mL/min (>60); Glucose 88 mg/dL (74-106); High Density Lipoprotein 59 mg/dL; Potassium 4.4 mmol/L (3.5-5.1); Sodium Level 137 mmol/L (136-145); Triglycerides 149 mg/dL; Very Low Density Lipoprotein 30 mg/dL (5-40); Vitamin D,25 Hydroxy 18.8 ng/mL (29.95-100.01)
== END ==
PROVIDERS: Family Provider Family Medicine; PCP Family Medicine; Referring Provider Family Medicine; Visit Provider Family Medicine
DX: I10 Essential (primary) hypertension (principal); E55.9 Vitamin D deficiency, unspecified; M19.012 Primary osteoarthritis, left shoulder
CPT/HCPCS: 36415; 73030; 80048; 80061; 82306

== ENCOUNTER 2019-04-04 07:30 | Outpatient (RCR) | payer MEDICARE, SELFPAY ==
--- NOTE | 2019-03-28 08:48 | HP.PTEVAL ---
Patient's Visit Information ИРИНА MAIER is a 73 year old F referred to Physical Therapy by Rolo Chin MD with a diagnosis of L shoulder pain. Date of Evaluation: 03/28/19 Physical Therapist: Kurtis Triplett PT, ATC - Visit Plan Frequency: 1x/Week Duration: 2 Weeks Plan: Issue and instruct on HEP for L shoulder rotator cuff strengthening and scapular stabilization ex's - Subjective Findings: Pt reports she fell last fall which resulted in L shoulder pain. Pt reports she has minor pain in the shoulder, but notes it hurts worst at the lateral L upper humerous and the pain even extends to her L hand at times. No PMHx of L shoulder trauma. Pt reports sleep difficulty secondary to pain. Pt is R hand dominant. Pt reports she received a cortisone injection in the L shoulder which has helped with some of her pain. Pt reports she did have xrays taken which revealed minor OA. Pt reports she is limited with overhead and forward reaching secondary to pain. Pt reports she has to blow her hair dry with her R hand secondary to pain. 6/10 pain at rest, 8/10 at worst. - Pain L shoulder Pain Intensity (Out of 10): 6 Pain Intensity Range: 8 - Objective Neuro: B UE sensation is WNL to light touch. B bicepital reflex= 2/3. Palpation: Pt is very tender along the distribution of the supraspinatus muscle. No obvious deformities present. ROM: R shoulder flex= 145, abd= 150, ER= 50, IR WNL; L shoulder flex= 115, abd= 95, ER= 35, IR WNL. MMT: L shoulder is grossly 4-/5 throughout available range and painful. R 5/5 throughout. Special tests: Pos empty can and HK test - Goals Goal 1:: I with HEP after 2 visits Goal Time Frame: 2 Weeks - Rehabilitation Potential Physical Therapy Diagnosis: L shoulder pain, weakness, and limited ROM secondary to L rotator cuff pathology Rehabilitation Potential: Good - Anticipated Interventions Patient/Client Instruction: Educate patient on: Condition, Plan of Care For the Purpose of:: To improve self management Therapeutic Exercise to Include: Strength training, Endurance training, Postural training, Scapular Strength/Stabilization For the Purpose of:: To decrease pain, To increase ROM, To improve muscle performance and motor function Cryotherapy (ice pack, ice massage): Yes For the Purpose of:: To decrease pain Thank you for the opportunity to evaluate your patient. For Medicare and Medicare HMO plans, please review the plan of care and approve it. It will need to be FAXED BACK to us at [phone] for Medicare purposes. For Medicare only, by signing this I certify the plan of care. Please let me know if there are questions or concerns regarding this plan of care. Physician Signature: Date:
--- NOTE | 2019-06-06 09:18 | HP.PT.NRP ---
HP - Discharge Summary (1) - Patient Information ИРИНА MAIER was seen in my office for initial evaluation on 03/28/19. The following Plan of Care was established for this patient: Initial Frequency: 1x/Week Initial Duration: 2 Weeks - Anticipated Interventions Patient/Client Instruction: Educate patient on: Condition, Plan of Care For the Purpose of:: To improve self management Therapeutic Exercise to Include: Strength training, Endurance training, Postural training, Scapular Strength/Stabilization For the Purpose of:: To decrease pain, To increase ROM, To improve muscle performance and motor function Cryotherapy (ice pack, ice massage): Yes For the Purpose of:: To decrease pain This patient was last seen in our office . Pertinent comments regarding their Physical therapy will appear below: Pt was treated for 2 PT visits for his L shoulder pain through the date of 04/04/19. Pt was issued a HEP and was I with the ex's at that time. Pt has not returned through todays date and is discontinued at this time At this point I will be discontinuing this patient from physical therapy. I would be happy to see this patient again in the future if found appropriate by the physician. Thank you! Kurtis Triplett, PT, ATC
== END 2019-04-04 19:00 | disposition home or self-care (01) ==
LOC: PT 07:30
PROVIDERS: Family Provider Family Medicine; PCP Family Medicine; Referring Provider Family Medicine; Visit Provider Family Medicine
DX: M25.512 Pain in left shoulder (principal)
CPT/HCPCS: 97110; 97161

== ENCOUNTER 2019-04-24 06:18 | Day surgery (SDC) | payer MEDICARE, SELFPAY ==
[2019-04-19 08:04] VITALS: BMI 35.8
[2019-04-24 06:46] VITALS: BP 126/68; PULSE 78; RESP 14; TEMP 36.6; O2SAT 95; BMI 35.2
[2019-04-24] MEDS: Lactated Ringers 1,000 ML 100 ML IV (07:02)
--- NOTE | 2019-04-24 07:18 | PCM.HP.BLA ---
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 Is patient in pain?: No Allergies losartan Adverse Reaction (Severe, Unverified 04/19/19 08:07) Fatigue, cough, and chest pain Medications Amlodipine Besylate [Norvasc] 10 mg PO DAILY 04/01/18 [History Confirmed 04/19/19] Calcium Carbonate [Calcium] 1,200 mg PO DAILY 04/01/18 [History Confirmed 04/19/19] Hydrochlorothiazide [Hctz] 25 mg PO DAILY 04/01/18 [History Confirmed 04/19/19] Multivitamins,Therapeutic [Multivitamin] 1 tab PO DAILY 04/01/18 [History Confirmed 04/19/19] Olmesartan Medoxomil 20 mg PO DAILY 04/01/18 [History Confirmed 04/19/19] Simvastatin 20 mg PO QHS 04/01/18 [History Confirmed 04/19/19] Aspirin E.C. [Ecotrin] 81 mg PO DAILY@0800 #30 tab 04/03/18 [Rx Confirmed 04/19/19] cholecalciferol (vitamin D3) 400 unit tablet 400 unit PO DAILY 04/19/19 [History Confirmed 04/19/19] omega-3 fatty acids 1,000 mg capsule 1,000 mg PO DAILY 04/19/19 [History Confirmed 04/19/19] omeprazole 20 mg capsule,delayed release 20 mg PO DAILY 04/19/19 [History Confirmed 04/19/19] [facility] Medical History Adenoid cystic carcinoma (Acute) Blood in stool (Acute) Constipation (Acute) HTN (hypertension) (Chronic) Atherosclerotic heart disease of [place] coronary artery with other forms of angina pectoris (Acute) Surgical History Hx of colonoscopy (Acute) History of tonsillectomy and adenoidectomy (Acute) Hx of dilation and curettage (Acute) Hx of local excision of skin lesion (Acute) History of left heart catheterization (Chronic 04/03/18) Family History Father CAD (coronary artery disease) <55 Heart disease Hypertension Brother CAD (coronary artery disease) Heart disease Mother Pancreatic cancer Social History (Updated 04/19/19 @ 08:28 by Cezar Ingram MD) Smoking Status: Never smoker second hand exposure: No alcohol intake: current alcohol intake frequency: holidays/special occasions only substance use type: does not use caffeine: Yes what type of physical activity do you participate in: walking, other frequency: 1-2 times per week seatbelt use: always HPI HPI HPI: ИРИНА MAIER, is a 73 F who presents to the office today for HPI HPI Surgical H&P: Yes HPI: ИРИНА MAIER, is a 73 F who presents to the office today for surgical consultation regarding acute onset of constipation and rectal bleeding and positive Cologuard. The patient was referred by Dr. Rolo Chin and a written copy of my surgical consult recommendations will be returned to him. Very recently the patient's had onset of acute constipation. She has not had a serious bowel movement for several days now. She has had some rectal bleeding. She did take a Cologuard test on March 20, 2019 and that was positive. She has had a previous colonoscopy February 28, [address] Vikash Mariscal. The patient states that she will not return to him that this was very uncomfortable she woke up in the middle of the procedure. The findings of that exam demonstrated diverticulosis throughout the sigmoid descending and transverse colon. There was an AVM in the distal sigmoid rectal area that was treated with APC cautery The patient does take fish oil and aspirin. She denies personal history of colon cancer. There is no family history of colon cancer. ROS General General: No weight change, appetite, fatigue, colon cancer, breast cancer or weakness HEENT HEENT: No difficulty swallowing, eye injury, eye surgery, swollen glands or hoarseness Endo Endocrine: No thyroid disease, diabetes mellitus, thyroid cancer, Hair loss, heat intolerance or cold intolerance Skin Skin: No rash or changing moles Musc Musculoskeletal: No back problems, arthritis, rheumatoid arthritis, gout or joint pain Cardio Cardiovascular: Yes high blood pressure; no murmur, pacemaker, heart disease, atrial fibrillation, heart attack, heart stent, palpitations, shortness of breat with exertion or chest pain Psych Psychiatric: No depression, anxiety or hearing voices Resp Respiratory: No shortness of breath, No sleep apnea, No cough, No COPD, No asthma, No emphysema, No wheezing Gastro Gastrointestinal: No abdominal pain, No nausea or vomiting, No diarrhea, Yes constipation, Yes blood in stool, No acid reflux, No hemorrhoids, No ulcers, No gallbladder problem, No black,tarry stools Marcos Hematologic: No blood thinners, No blood disorders, No bleeding, No anemia, No blood clots Neuro Neurologic: No system reviewed and no additional complaints, except as docu, No as per HPI, No abnormal walking, No abnormal hearing, No abnormal movements, No abnormal speech, No behavioral changes, No burning sensations, No confusion, No seizure-like activity, No unsteadiness, No dizziness, No localized weakness, No frequent falls, No headache(s), No lack of coordination, No loss of vision, No memory loss, No numbness, No other visual disturbances, No radiating pain, No restless legs, No sensory deficit, No fainting, No tingling, No tremor(s), No weakness, No other Exam Const General: cooperative, healthy appearing, comfortable, no acute distress Nutritional Appearance: obese Orientation: alert, awake, oriented x3 HENMT Head: normal to inspection Resp Effort & Inspection: normal respiratory effort Auscultation: clear to auscultation bilaterally Cardio Rate: regular rate Rhythm: regular rhythm Heart Sounds: no murmurs GI Palpation: soft, no hepatosplenomegaly Other: Normal bowel sounds, no focal mass, no rebound, no guarding, no gross ventral defect Neuro General: alert, awake Extrem General: no calf tenderness bilaterally Psych Affect: normal affect Assessment & Plan Problems 1. Constipation, unspecified constipation type K59.00 2. Rectal bleeding K62.5 3. History of arteriovenous malformation (AVM) Z87.74 Plan Acute constipation likely functional. Aggravated rectal bleeding. History of rectosigmoid AVM. History of diverticular disease. Cologuard positive I recommended the patient that we initiate MiraLAX therapy daily with capful now on a capful later if no results. The patient's contact the office tomorrow and may require magnesium citrate and in addition. We will schedule a esophagogastroduodenoscopy with possible biopsy and colonoscopy with possible biopsy or polypectomy as indicated. She is aware of the technique, benefit, risks, alternatives. She has had an opportunity to ask and have questions answered. She is aware that if she has a bleeding AVM that these are more difficult to control. Great caution will need to be utilized regarding the degree of cauterization. She has had an opportunity to ask and have questions answered. We will schedule and expedite her care. We have asked her to hold her fish oil I very much appreciate the kind opportunity of assisting with her surgical management CC: Dr. Rolo Ingram M.D., F.A.C.S. 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 There are no clinical changes since date of exam.
--- NOTE | 2019-04-24 07:30 | IMM_PTH ---
PATIENT: ИРИНА MAIER LOC: EN U#:[id number] AGE/SX: 73/F ROOM: RE04/24/[address]: Dr. Cezar Ingram MD : 1945 BED: DIS: 04/24/2019 SPEC #: [id number] RECD: 04/24/19 12:25 STATUS: ALMAZ REAlthea #: [id number] KRISTY: 04/24/19 07:[address]: Cezar Ingram DEPT: IMMUNOHISTOCHEMISTRY RECD BY: Meagan Rizzo ENTERED: 04/24/19 12:26 SP TYPE: IMMUNO OTHR DR: Dr. Rolo Chin MD Tissues: B - Stomach, NOS Procedures: H Pylori (initial) PHYSICIAN & INSTITUTION [place] [address] SPECIMEN INFORMATION: Tissue Source: B - Antrum polyp biopsy Clinical Info: Constipation, rectal bleeding Specimen Number: [id number] CPT code: 90138 METHODOLOGY: Deparaffinized sections of prefer/formalin-fixed tissue or PAP/DQ stained slides are incubated with monoclonal/polyclonal antibodies/oligonucleotide probes. Localization is made via biotin free immunoperoxidase method. Appropriate controls are performed and reacted as expected. Results on target cell population are indicated in the following table: RESULTS: ANTIBODY / CLONE RESULT Block B H Pylori (polyclonal) negative These tests were developed and their performance characteristics determined by [facility]. They may not have been cleared or approved by the U.S. Food and Drug Administration. The FDA has determined that such clearance or approval is not necessary. INTERPRETATION: B. Antrum polyp, biopsy: Negative for Helicobacter pylori organisms. SJ:missy 04/25/19
--- NOTE | 2019-04-24 07:30 | EGD_PTH ---
PATIENT: ИРИНА MAIER LOC: EN U#:[id number] AGE/SX: 73/F ROOM: RE04/24/[address]: Dr. Cezar Ingram MD : 1945 BED: DIS: 04/24/2019 SPEC #: [id number] RECD: 04/24/19 10:50 STATUS: ALMAZ ARASH #: [id number] KRISTY: 04/24/19 07:[address]: Cezar Ingram DEPT: SURGICAL PATHOLOGY RECD BY: Kaiser Lopez ENTERED: 04/24/19 11:47 SP TYPE: EGD BIOPSY OT DR: Dr. Rolo Chin MD Tissues: A - Duodenum, NOS B - Gastric mucous membrane C - Esophageal mucous membrane D - COLON BIOPSY Procedures: Surgery Specimen Level IV HEADER OPERATION: Colonoscopy, EGD [place] [place] DIAGNOSIS: Constipation, rectal bleeding TISSUE SUBMITTED: A - Duodenum biopsy, B - Antrum polyp biopsy for H. pylori and histo, C - Schatzki's ring, D - Hepatic flexure polyp MICROSCOPIC DIAGNOSIS A. Duodenum, biopsy: A fragment of duodenal mucosa, no pathologic diagnosis. B. Antrum, biopsy: Mild gastritis. See microscopic description and comment. C. Schatzki's ring, biopsy: Fragments of squamous epithelium with minimal chronic inflammation. D. Hepatic flexure polyp, biopsy: Fragments of tubular adenoma. SJ:missy 04/25/19 COMMENT B. The results of immunohistochemistry for Helicobacter pylori will be reported separately ([id number]). MICROSCOPIC DESCRIPTION Slides are reviewed. B. The specimen shows fragments of gastric mucosa with chronic inflammatory cell infiltrates in the lamina propria consisting of lymphocytes and plasma cells, consistent with mild chronic gastritis. A minute lymphoid aggregate is noted, favor benign. GROSS DESCRIPTION A - Received in fixative is one container labeled with the patient's name and designated duodenum biopsy. The specimen consists of one irregular fragment of light rubi soft tissue that measures 0.2 x 0.2 x 0.1 cm. The specimen is totally submitted in one cassette. B - Received in fixative is one container labeled with the patient's name and designated antrum biopsy. The specimen consists of two irregular fragments of light rubi soft tissue that in aggregate measure 0.6 x 0.6 x 0.1 cm. The specimen is totally submitted in one cassette. C - Received in fixative is one container labeled with the patient's name and designated Schatzki's ring. The specimen consists of one irregular fragment of light rubi soft tissue that measures 0.3 x 0.2 x 0.1 cm. The specimen is totally submitted in one cassette. D - Received in fixative is one container labeled with the patient's name and designated hepatic flexure polyp. The specimen consists of multiple irregular fragments of light rubi soft tissue that in aggregate measure 2 x 0.6 x 0.1 cm. The specimen is totally submitted in one cassette. / AM:missy 04/24/19 TC:1 CPT: 54585 x4
[2019-04-24 08:33] VITALS: BP 117/67; BP 126/68; PULSE 80; RESP 16; TEMP 36.2; O2SAT 98
[2019-04-24 08:35] VITALS: BP 118/68; BP 126/68; PULSE 81; RESP 16; O2SAT 97
[2019-04-24 08:40] VITALS: BP 109/82; BP 126/68; PULSE 87; RESP 16; O2SAT 95
[2019-04-24 08:44] VITALS: BP 122/75; BP 126/68; PULSE 82; RESP 16; TEMP 36.5; O2SAT 97
[2019-04-24 09:14] VITALS: BP 126/68
--- NOTE | 2019-04-24 23:35 | OP.ENDO_ITS ---
04/24/2019 Rolo Chin MD [address] [place] [address] Re : Colonoscopy procedure for Marita Partida Dear Dr. Chin This procedure was performed on Wednesday, April 24, 2019. My impressions and recommendations are as follows: Impressions : - Preparation of the colon was fair. - Non-thrombosed internal hemorrhoids and internal hemorrhoids that prolapse with straining, but require manual replacement into the anal canal (Grade III) found on digital rectal exam. - One 10 mm polyp at the hepatic flexure, removed with a hot snare. Resected and retrieved. - Diverticulosis in the entire examined colon. Recommendations : - Discharge patient to home. - Resume previous diet. - Continue present medications. - Repeat colonoscopy in 5 years for surveillance. - Telephone my office for pathology results in 1 week. Office follow up if discussion regarding possible stapled treatment of internal hemorrhoids. My findings are described in the full procedure note, which is enclosed. If I can be of further assistance, please feel free to contact me at Doctor phone number(s): Work: . Sincerely, Cezar Ingram MD 04/24/2019 8:36:51 AM This report has been signed electronically.
--- NOTE | 2019-04-24 23:35 | OP.ENDO_ITS ---
04/24/2019 Rolo Chin MD [address] [place] [id number] Re : Upper GI endoscopy procedure for Marita Partida Dear Dr. Chin This procedure was performed on Wednesday, April 24, 2019. My impressions and recommendations are as follows: Impressions : - Reflux esophagitis. - Medium-sized hiatal hernia. - Mild Schatzki ring. Biopsied. - A few gastric polyps. Antral polyp cold forecep biopsied. - Erythematous duodenopathy. Biopsied. Recommendations : - Await pathology results. - Discharge patient to home. - Resume previous diet. - Continue present medications. - Await pathology results. - Telephone my office for pathology results in 1 week. My findings are described in the full procedure note, which is enclosed. If I can be of further assistance, please feel free to contact me at Doctor phone number(s): Work: . Sincerely, Cezar Ingram MD 04/24/2019 8:32:58 AM This report has been signed electronically.
== END 2019-04-24 09:17 | disposition home or self-care (01) ==
LOC: EN 06:20 → AC 06:20
PROVIDERS: Family Provider Family Medicine; PCP Family Medicine; Referring Provider Family Medicine; Visit Provider Surgery
PROC: 0DJD8ZZ Inspection of Lower Intestinal Tract, Via Natural or Artificial Opening Endoscopic (ICD-10-PCS; CPT 45378; principal; 2019-04-24 07:25)
DX: K21.0 Gastro-esophageal reflux disease with esophagitis (principal); K44.9 Diaphragmatic hernia without obstruction or gangrene; K22.2 Esophageal obstruction; K29.70 Gastritis, unspecified, without bleeding; K64.2 Third degree hemorrhoids; D12.3 Benign neoplasm of transverse colon; K31.89 Other diseases of stomach and duodenum; K57.30 Diverticulosis of large intestine without perforation or abscess without bleeding; R19.5 Other fecal abnormalities; I10 Essential (primary) hypertension; E78.00 Pure hypercholesterolemia, unspecified; K59.00 Constipation, unspecified; K62.5 Hemorrhage of anus and rectum; Z87.74 Personal history of (corrected) congenital malformations of heart and circulatory system; Z79.82 Long term (current) use of aspirin; Z79.899 Other long term (current) drug therapy
CPT/HCPCS: 43239; 45385; 88305; 88342; J7120; J2405

== ENCOUNTER → 2019-10-01 07:38 | Outpatient (CLI) | payer MEDICARE, SELFPAY ==
[2019-10-01 10:35] LABS: Anion Gap 8 (5-15); BUN 15 mg/dL (7-18); BUN/Creat Ratio 20.2 RATIO (10-20); Calcium,Total 9.4 mg/dL (8.5-10.1); Chloride 102 mmol/L (98-107); Cholesterol 154 mg/dL (200); Creatinine, Serum 0.74 mg/dL (0.55-1.02); EST Glomerular Filtration Rate 82 mL/min (>60); Est Glom Filt Rate - Afr Amer 99 mL/min (>60); Glucose 97 mg/dL (74-106); High Density Lipoprotein 57 mg/dL; Potassium 3.7 mmol/L (3.5-5.1); Sodium Level 139 mmol/L (136-145); Triglycerides 178 mg/dL; Very Low Density Lipoprotein 36 mg/dL (5-40)
[2019-10-02 09:21] LABS: Vitamin D,25 Hydroxy 26.7 ng/mL
== END ==
PROVIDERS: PCP Family Medicine; Referring Provider Family Medicine; Visit Provider Family Medicine
DX: I10 Essential (primary) hypertension (principal); E55.9 Vitamin D deficiency, unspecified
CPT/HCPCS: 36415; 80048; 80061; 82306

== ENCOUNTER → 2020-02-12 10:06 | Outpatient (CLI) | payer MEDICARE, SELFPAY ==
--- NOTE | 2020-02-12 10:08 | BI_ITS ---
MAMMOGRAPHY - BILATERAL SCREENING REASON FOR EXAM: Female, 74 years old. Routine annual screening examination. PERTINENT HISTORY: Non-contributory. TECHNIQUE: Digital bilateral breast mukul (3D mammographic acquisition) in the CC and MLO projections. 2-D mediolateral oblique (MLO) and craniocaudad (CC) views of both breasts were obtained. CAD: Full Field Digital Mammography with Computer Added Detection was performed. COMPARISON: Comparison is made with prior outside examination dated November 04, 2017 and November 28, 2018. FINDINGS: Breast Composition: The breasts are almost entirely fatty. There are no dominant masses or suspicious calcifications. Stable small benign-appearing bilateral axillary lymph nodes. No other significant abnormalities are identified. There has been no significant change since the prior study. BI/SCREEN MAMM (CAD) W/MUKUL BILAT IMPRESSION: Stable bilateral screening mammogram. Yearly follow-up mammogram recommended. (A) ASSESSMENT CATEGORY: BIRADS Category 2: Benign. A letter regarding these results will be sent to the patient by the facility within 30 days. Approximately 10% of breast cancers are not detected by mammography. A normal mammogram should not delay biopsy of a clinically suspicious abnormality. [id number] Electronically Signed: Tyrell Quintana, at 11:01 EDT , Service support ,
== END ==
PROVIDERS: PCP Family Medicine; Referring Provider Family Medicine; Visit Provider Family Medicine
DX: Z12.31 Encounter for screening mammogram for malignant neoplasm of breast (principal)
CPT/HCPCS: 77063; 77067

== ENCOUNTER → 2020-04-01 07:06 | Outpatient (CLI) | payer MEDICARE, SELFPAY ==
[2020-04-01 11:06] LABS: Anion Gap 6 (5-15); BUN 14 mg/dL (7-18); Calcium,Total 9.3 mg/dL (8.5-10.1); Chloride 102 mmol/L (98-107); Cholesterol 156 mg/dL (200); Creatinine, Serum 0.82 mg/dL (0.55-1.02); EST Glomerular Filtration Rate 72 mL/min (>60); Est Glom Filt Rate - Afr Amer 88 mL/min (>60); Glucose 100 mg/dL (74-106); High Density Lipoprotein 56 mg/dL; Potassium 3.9 mmol/L (3.5-5.1); Sodium Level 136 mmol/L (136-145); Triglycerides 196 mg/dL; Very Low Density Lipoprotein 39 mg/dL (5-40)
== END ==
PROVIDERS: PCP Family Medicine; Referring Provider Family Medicine; Visit Provider Family Medicine
DX: I10 Essential (primary) hypertension (principal)
CPT/HCPCS: 36415; 80048; 80061

== ENCOUNTER → 2020-10-01 07:04 | Outpatient (CLI) | payer MEDICARE, SELFPAY ==
[2020-10-01 10:55] LABS: ALB/GLOB Ratio 1.1 RATIO (0.9-2.4); AST(SGOT) 20 U/L (15-37); Alanine Aminotransfer ALT/SGPT 29 U/L (13-56); Albumin, Serum 4.1 g/dL (3.2-5.0); Alkaline Phosphatase 56 U/L (45-117); Anion Gap 7 (5-15); BUN 17 mg/dL (7-18); BUN/Creat Ratio 23.4 RATIO (10-20); Calcium,Total 9.5 mg/dL (8.5-10.1); Chloride 100 mmol/L (98-107); Cholesterol 160 mg/dL (200); Creatinine, Serum 0.72 mg/dL (0.55-1.02); EST Glomerular Filtration Rate 84 mL/min (>60); Est Glom Filt Rate - Afr Amer 101 mL/min (>60); Globulin 3.9 g/dL (2.2-4.2); Glucose 102 mg/dL (74-106); High Density Lipoprotein 56 mg/dL; Potassium 4.1 mmol/L (3.5-5.1); Sodium Level 136 mmol/L (136-145); Triglycerides 242 mg/dL; Very Low Density Lipoprotein 48 mg/dL (5-40)
== END ==
PROVIDERS: PCP Family Medicine; Referring Provider Family Medicine; Visit Provider Family Medicine
DX: I10 Essential (primary) hypertension (principal)
CPT/HCPCS: 36415; 80053; 80061

== ENCOUNTER → 2021-02-12 07:00 | Outpatient (CLI) | payer MEDICARE, SELFPAY ==
--- NOTE | 2021-02-12 07:02 | BI_ITS ---
MAMMOGRAPHY - BILATERAL SCREENING REASON FOR EXAM: Female, 75 years old. Routine annual screening examination. PERTINENT HISTORY: Non-contributory. TECHNIQUE: Digital bilateral breast mukul (3D mammographic acquisition) in the CC and MLO projections. 2-D mediolateral oblique (MLO) and craniocaudad (CC) views of both breasts were obtained. CAD: Full Field Digital Mammography with Computer Added Detection was performed. COMPARISON: Comparison is made with prior study dated 02/12/2020 and 11/28/2018. FINDINGS: Breast Composition: There are scattered areas of fibroglandular density. There are no dominant masses or suspicious calcifications. Stable benign appearing bilateral axillary nodes. No other significant abnormalities are identified. There has been no significant change since the prior study. BI/SCRN MAMM (CAD)W/MUKUL BILAT IMPRESSION: Stable bilateral screening mammogram. Yearly follow-up mammogram recommended. (A) ASSESSMENT CATEGORY: BIRADS Category 2: Benign. A letter regarding these results will be sent to the patient by the facility within 30 days. Approximately 10% of breast cancers are not detected by mammography. A normal mammogram should not delay biopsy of a clinically suspicious abnormality. [id number] Electronically Signed: Tyrell Quintnaa MD at 8:30 EDT , Service support ,
== END ==
PROVIDERS: PCP Family Medicine; Referring Provider Family Medicine; Visit Provider Family Medicine
DX: Z12.31 Encounter for screening mammogram for malignant neoplasm of breast (principal)
CPT/HCPCS: 77063; 77067

== ENCOUNTER → 2021-04-10 07:04 | Outpatient (CLI) | payer MEDICARE, SELFPAY ==
[2021-04-10 10:56] LABS: Cholesterol 162 mg/dL (200); High Density Lipoprotein 55 mg/dL; Triglycerides 169 mg/dL; Very Low Density Lipoprotein 34 mg/dL (5-40)
== END ==
PROVIDERS: PCP Family Medicine; Referring Provider Family Medicine; Visit Provider Family Medicine
DX: I10 Essential (primary) hypertension (principal)
CPT/HCPCS: 36415; 80061

== ENCOUNTER → 2021-06-30 07:08 | Outpatient (CLI) | payer MEDICARE, SELFPAY ==
[2021-06-30 10:13] LABS: Anion Gap 6 (5-15); BUN 18 mg/dL (7-18); Calcium,Total 9.4 mg/dL (8.5-10.1); Chloride 102 mmol/L (98-107); Creatinine, Serum 0.72 mg/dL (0.55-1.02); EST Glomerular Filtration Rate 84 mL/min (>60); Est Glom Filt Rate - Afr Amer 102 mL/min (>60); Glucose 99 mg/dL (74-106); Potassium 3.9 mmol/L (3.5-5.1); Sodium Level 137 mmol/L (136-145)
== END ==
PROVIDERS: PCP Family Medicine; Referring Provider Family Medicine; Visit Provider Family Medicine
DX: E78.5 Hyperlipidemia, unspecified (principal)
CPT/HCPCS: 36415; 80048

== ENCOUNTER 2021-10-28 16:51 | Outpatient (CLI) | payer MEDICARE, SELFPAY ==
--- NOTE | 2021-10-28 16:53 | RAD_ITS ---
EXAM: XR RIGHT SHOULDER COMPLETE, 2 OR MORE VIEWS CLINICAL INDICATION: SHOULDER PAIN TECHNIQUE: Two or more views of the right shoulder. This report was created using [employer] report generation technology. COMPARISON: None. FINDINGS: BONES/JOINTS: Mild degenerative changes of the acromioclavicular joint. Question tiny subacromial enthesophyte. No acute or healing fracture or malalignment. Degenerative changes of the spine. No sclerotic or destructive changes observed. 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 No soft tissue swelling or gas. No radiopaque foreign body. RAD/Shoulder min 2 Views IMPRESSION: No acute or healing fracture or malalignment. Electronically Signed: Kasi Gates MD at 4:23 EDT ,
== END 2021-10-28 23:59 | disposition home or self-care (01) ==
LOC: MTRAD 16:52
PROVIDERS: PCP Family Medicine; Referring Provider Family Medicine; Visit Provider Family Medicine
DX: M25.511 Pain in right shoulder (principal)
CPT/HCPCS: 73030

== ENCOUNTER → 2021-12-30 | Outpatient (CLI) | payer MEDICARE, SELFPAY ==
[2021-12-30 11:06] LABS: Anion Gap 6 (5-15); BUN 16 mg/dL (7-18); BUN/Creat Ratio 21.8 RATIO (10-20); Calcium,Total 9.3 mg/dL (8.5-10.1); Chloride 102 mmol/L (98-107); Cholesterol 161 mg/dL (200); Creatinine, Serum 0.73 mg/dL (0.55-1.02); EST Glomerular Filtration Rate 82 mL/min (>60); Est Glom Filt Rate - Afr Amer 100 mL/min (>60); Glucose 109 mg/dL (74-106); High Density Lipoprotein 63 mg/dL; Potassium 4.1 mmol/L (3.5-5.1); Sodium Level 136 mmol/L (136-145); Triglycerides 134 mg/dL; Very Low Density Lipoprotein 27 mg/dL (5-40)
== END | disposition home or self-care (01) ==
LOC: MTLAB 07:05
PROVIDERS: PCP Family Medicine; Referring Provider Family Medicine; Visit Provider Family Medicine
DX: E78.5 Hyperlipidemia, unspecified (principal); I10 Essential (primary) hypertension
CPT/HCPCS: 36415; 80048; 80061

== ENCOUNTER → 2022-02-15 | Outpatient (CLI) | payer MEDICARE, SELFPAY ==
--- NOTE | 2022-02-15 07:24 | BI_ITS ---
MAMMOGRAPHY - BILATERAL SCREENING REASON FOR EXAM: Female, 76 years old. Routine annual screening examination. PERTINENT HISTORY: Non-contributory. TECHNIQUE: Digital bilateral breast mukul (3D mammographic acquisition) in the CC and MLO projections. 2-D mediolateral oblique (MLO) and craniocaudad (CC) views of both breasts were obtained. CAD: Full Field Digital Mammography with Computer Added Detection was performed. COMPARISON: Comparison is made with prior study dated 02/12/2021 and 02/12/2020. FINDINGS: Breast Composition: There are scattered areas of fibroglandular density. There are no dominant masses or suspicious calcifications. No other significant abnormalities are identified. There has been no significant change since the prior study. BI/SCRN MAMM (CAD)W/MUKUL BILAT IMPRESSION: Stable bilateral screening mammogram. Yearly follow-up mammogram recommended. (A) ASSESSMENT CATEGORY: BIRADS Category 1: Negative. A letter regarding these results will be sent to the patient by the facility within 30 days. Approximately 10% of breast cancers are not detected by mammography. A normal mammogram should not delay biopsy of a clinically suspicious abnormality. [id number] Electronically Signed: Tyrell Quintana MD at 8:30 EDT ,
== END | disposition home or self-care (01) ==
LOC: OPBI 07:22
PROVIDERS: PCP Family Medicine; Visit Provider Family Medicine
DX: Z12.31 Encounter for screening mammogram for malignant neoplasm of breast (principal)
CPT/HCPCS: 77063; 77067

== ENCOUNTER → 2022-06-24 | Outpatient (CLI) | payer MEDICARE, SELFPAY ==
[2022-06-24 12:57] LABS: Anion Gap 8 (5-15); BUN 13 mg/dL (7-18); BUN/Creat Ratio 17.6 RATIO (10-20); Calcium,Total 9.9 mg/dL (8.5-10.1); Chloride 101 mmol/L (98-107); Cholesterol 182 mg/dL (200); Creatinine, Serum 0.74 mg/dL (0.55-1.02); EST Glomerular Filtration Rate 82 mL/min (>60); Est Glom Filt Rate - Afr Amer 99 mL/min (>60); Glucose 101 mg/dL (74-106); High Density Lipoprotein 56 mg/dL; Sodium Level 137 mmol/L (136-145); Triglycerides 201 mg/dL; Very Low Density Lipoprotein 40 mg/dL (5-40)
== END | disposition home or self-care (01) ==
LOC: MTLAB 09:53
PROVIDERS: PCP Family Medicine; Referring Provider Family Medicine; Visit Provider Family Medicine
DX: I10 Essential (primary) hypertension (principal)
CPT/HCPCS: 36415; 80048; 80061

== ENCOUNTER → 2022-12-23 | Outpatient (CLI) | payer MEDICARE, SELFPAY ==
[2022-12-23 12:55] LABS: ALB/GLOB Ratio 1.1 RATIO (0.9-2.4); AST(SGOT) 23 U/L (15-37); Alanine Aminotransfer ALT/SGPT 35 U/L (13-56); Albumin, Serum 4.2 g/dL (3.2-5.0); Alkaline Phosphatase 55 U/L (45-117); Anion Gap 8 (5-15); BUN 12 mg/dL (7-18); BUN/Creat Ratio 15.9 RATIO (10-20); Calcium,Total 9.8 mg/dL (8.5-10.1); Chloride 105 mmol/L (98-107); Cholesterol 144 mg/dL (200); Creatinine, Serum 0.75 mg/dL (0.55-1.02); EST Glomerular Filtration Rate 80 mL/min (>60); Est Glom Filt Rate - Afr Amer 96 mL/min (>60); Globulin 3.9 g/dL (2.2-4.2); Glucose 99 mg/dL (74-106); High Density Lipoprotein 55 mg/dL; Potassium 3.8 mmol/L (3.5-5.1); Protein, Total 8.1 g/dL (6.4-8.2); Sodium Level 138 mmol/L (136-145); Triglycerides 171 mg/dL; Very Low Density Lipoprotein 34 mg/dL (5-40)
== END | disposition home or self-care (01) ==
LOC: MTLAB 09:47
PROVIDERS: PCP Family Medicine; Referring Provider Family Medicine; Visit Provider Family Medicine
DX: E78.5 Hyperlipidemia, unspecified (principal)
CPT/HCPCS: 36415; 80053; 80061

== ENCOUNTER → 2023-03-01 | Outpatient (CLI) | payer MEDICARE, SELFPAY ==
--- NOTE | 2023-03-01 07:17 | BI_ITS ---
MAMMOGRAPHY - BILATERAL SCREENING REASON FOR EXAM: Female, 77 years old. Routine annual screening examination. PERTINENT HISTORY: Non-contributory. TECHNIQUE: Digital bilateral breast mukul (3D mammographic acquisition) in the CC and MLO projections. 2-D mediolateral oblique (MLO) and craniocaudad (CC) views of both breasts were obtained. CAD: Full Field Digital Mammography with Computer Added Detection was performed. COMPARISON: Comparison is made with prior study of February 15, 2022 and February 12, 2021. FINDINGS: Breast Composition: There are scattered areas of fibroglandular density. There are no dominant masses or suspicious calcifications. No other significant abnormalities are identified. There has been no significant change since the prior study. BI/SCRN MAMM (CAD)W/MUKUL BILAT IMPRESSION: Stable bilateral screening mammogram. Yearly follow-up mammogram recommended. (A) ASSESSMENT CATEGORY: BIRADS Category 1: Negative. A letter regarding these results will be sent to the patient by the facility within 30 days. Approximately 10% of breast cancers are not detected by mammography. A normal mammogram should not delay biopsy of a clinically suspicious abnormality. [id number] Electronically Signed: Tyrell Quintana MD at 9:19 EDT ,
== END | disposition home or self-care (01) ==
LOC: OPBI 07:14
PROVIDERS: PCP Family Medicine; Referring Provider Family Medicine; Visit Provider Family Medicine
DX: Z12.31 Encounter for screening mammogram for malignant neoplasm of breast (principal)
CPT/HCPCS: 77063; 77067

== ENCOUNTER → 2023-06-23 | Outpatient (CLI) | payer MEDICARE, SELFPAY ==
[2023-06-23 10:07] LABS: ALB/GLOB Ratio 1.1 RATIO (0.9-2.4); AST(SGOT) 22 U/L (15-37); Alanine Aminotransfer ALT/SGPT 29 U/L (13-56); Albumin, Serum 4.2 g/dL (3.2-5.0); Alkaline Phosphatase 52 U/L (45-117); Anion Gap 6 (5-15); BUN 12 mg/dL (7-18); Calcium,Total 9.6 mg/dL (8.5-10.1); Chloride 103 mmol/L (98-107); Cholesterol 156 mg/dL (200); EST Glomerular Filtration Rate 74 mL/min (>60); Est Glom Filt Rate - Afr Amer 90 mL/min (>60); Globulin 3.8 g/dL (2.2-4.2); Glucose 102 mg/dL (74-106); High Density Lipoprotein 60 mg/dL; Sodium Level 138 mmol/L (136-145); Triglycerides 189 mg/dL; Very Low Density Lipoprotein 38 mg/dL (5-40)
== END | disposition home or self-care (01) ==
LOC: MFPLAB 08:48
PROVIDERS: PCP Family Medicine; Visit Provider Family Medicine
DX: E78.5 Hyperlipidemia, unspecified (principal)
CPT/HCPCS: 36415; 80053; 80061

== ENCOUNTER → 2023-12-22 | Outpatient (CLI) | payer MEDICARE, SELFPAY ==
[2023-12-22 10:51] LABS: Anion Gap 6 (5-15); BUN 14 mg/dL (7-18); BUN/Creat Ratio 18.4 RATIO (10-20); Chloride 101 mmol/L (98-107); Cholesterol 177 mg/dL (200); Creatinine, Serum 0.76 mg/dL (0.55-1.02); EST Glomerular Filtration Rate 79 mL/min (>60); Est Glom Filt Rate - Afr Amer 95 mL/min (>60); Glucose 112 mg/dL (74-106); High Density Lipoprotein 59 mg/dL; Potassium 4.1 mmol/L (3.5-5.1); Sodium Level 136 mmol/L (136-145); Triglycerides 177 mg/dL; Very Low Density Lipoprotein 35 mg/dL (5-40)
== END | disposition home or self-care (01) ==
LOC: MFPLAB 08:36
PROVIDERS: PCP Family Medicine; Visit Provider Family Medicine
DX: I10 Essential (primary) hypertension (principal)
CPT/HCPCS: 36415; 80048; 80061

== ENCOUNTER 2024-02-21 07:30 | Emergency (ER) | payer MEDICARE, SELFPAY ==
[2024-02-21 07:31] VITALS: BP 130/79; PULSE 88; RESP 18; TEMP 36.4; O2SAT 98
--- NOTE | 2024-02-21 07:41 | EKG12_ITS ---
Test Reason : GENERAL Blood Pressure : / mmHG Vent. Rate : 088 BPM Atrial Rate : 088 BPM P-R Int : 160 ms QRS Dur : 092 ms QT Int : 346 ms P-R-T Axes : 009 015 012 degrees QTc Int : 418 ms Normal sinus rhythm Normal ECG Confirmed by REAGAN GARCIA, RADHA ([id number]), purchase request editor RAHEL CAAL ([id number]) on 02/23/2024 10:32:45 A M Referred By: Confirmed By:TITO KIRK MD
--- NOTE | 2024-02-21 07:42 | EDS_ITS ---
HPI History of Present Illness Chief Complaint: Nausea/Vomiting/Diarrhea Detail of Chief Complaint: Nausea and vomiting Informant: patient Narrative Narrative: Patient presents to the emergency department complaint nausea and vomiting. Alicia quinonez states that she had COVID weeks ago as well as her . Patient then had a stomach bug about a week and a half ago. She initially had vomiting and diarrhea. Diarrhea stopped about a week ago. Stool at times is green or brown and at times orange. Patient seen by her primary care physician last week in the office and was prescribed Phenergan for nausea. Have been doing relatively well and this morning woke up and felt nauseated and vomited x 1. She is feels weak and nauseated. She denies any chest pain. Denies abdominal pain. Denies any recent antibiotic usage. [facility] Medical History (Updated 02/21/24 @ 10:[address] Jessika Heart, DO) History of arteriovenous malformation (AVM) Rectal bleeding Adenoid cystic carcinoma Blood in stool Constipation Atherosclerotic heart disease of [place] coronary artery with other forms of angina pectoris HTN (hypertension) Home Medications ?Medication ?Instructions ?Recorded ?Last Taken ?Type amlodipine 10 mg tablet 10 mg PO DAILY BP 04/01/18 04/24/19 05:30 History 10 MG calcium carbonate 1,200 mg PO DAILY supplement 04/01/18 03/31/18 History multivitamin with folic acid 400 1 tab PO DAILY supplement 04/01/18 03/31/18 History mcg tablet olmesartan 20 mg tablet 20 mg PO DAILY BP 04/01/18 04/24/19 05:30 History 20 MG simvastatin 20 mg tablet 20 mg PO QHS cholesterol 04/01/18 03/31/18 History aspirin 81 mg tablet,delayed 81 mg PO DAILY@0800 #30 tabs 04/03/18 Unknown Rx release cholecalciferol (vitamin D3) 10 400 unit PO DAILY 04/19/19 Unknown History mcg (400 unit) tablet omega-3 fatty acids 1,000 mg 1,000 mg PO DAILY 04/19/19 04/19/19 History capsule (Fish Oil Concentrate) albuterol sulfate 90 mcg/actuation 2 puff inhalation Q4-6H PRN 01/22/24 Unknown Rx aerosol inhaler shortness of breath or wheezing #6.7 grams trazodone 100 mg tablet 100 mg PO QHS 01/22/24 Unknown History ondansetron 4 mg disintegrating 4 mg PO Q8H PRN PRN Nausea #10 tabs 02/21/24 Unknown Rx tablet Allergy/AdvReac Type Severity Reaction Status Date / Time losartan AdvReac Severe Fatigue, Verified 01/22/24 13:09 cough, and chest pain Family History Father CAD (coronary artery disease) <55 Heart disease Hypertension Brother CAD (coronary artery disease) Heart disease Mother Pancreatic cancer Surgical History Hx of colonoscopy History of tonsillectomy and adenoidectomy Hx of dilation and curettage Hx of local excision of skin lesion History of left heart catheterization (04/03/18) Social History (Updated 04/19/19 @ 08:[address] Cezar Ingram MD) Smoking Status: Never smoker second hand exposure: No alcohol intake: current alcohol intake frequency: holidays/special occasions only substance use type: does not use caffeine: Yes what type of physical activity do you participate in: walking and other frequency: 1-2 times per week seatbelt use: always ROS ROS ED Review of Systems ROS Unobtainable: other Constitutional Constitutional ED: Reports lethargy; Denies chills, fever(s), sweats or weight loss Eyes Eyes: Denies blurry vision, change in vision or diplopia ENT ENT ED: Denies rhinorrhea or sore throat Cardiovascular Cardiovascular: Denies chest pain, orthopnea or racing heartbeat Respiratory/Chest Respiratory/Chest: Denies cough, dyspnea, dyspnea on exertion, orthopnea or sputum Gastrointestinal Gastrointestinal: Reports nausea and vomiting; Denies abdominal pain or diarrhea Genitourinary Genitourinary ED: Denies dysuria, hematuria or urinary frequency Musculoskeletal Musculoskeletal: Denies arthralgias, back pain, myalgias or neck pain Integumentary Denies abscess, Abrasions or rash Neurologic Neurologic: Denies headache(s) or weakness Psychiatric Psychiatric: Denies anxiety, depression or suicidal thoughts Endocrine Endocrinology: Denies polydipsia, polyphagia or polyuria Hematologic/Lymphatic Hematologic/Lymphatic: Denies easy bleeding, easy bruising or lymphadenopathy Allergic/Immunologic Allergic/Immunologic ED: Denies mouth swelling, tongue swelling or urticaria EXAM Physical Exam Const Vital Signs: 02/21/24 07:31 02/21/24 09:32 02/21/24 10:18 Temperature 97.5 F L 98.1 F 97.1 F L Temperature Source Temporal Temporal Pulse Rate 88 84 91 Respiratory Rate 18 18 16 Blood Pressure 130/79 H 122/64 H 121/79 H Blood Pressure Mean 96 83 93 Pulse Ox 98 96 100 Oxygen Delivery Method Room Air Room Air Positive well nourished and well developed General Appearance ED: well developed and NAD HEENT Reports TM's clear and moist mucous membranes normocephalic and atraumatic; Negative for trauma or tenderness Tympanic Membrane ED: Yes TM's clear Eyes PERRL and EOMs intact bilaterally General Eye ED: Negative for pale conjunctiva or scleral icterus Neck no lymphadenopathy, supple and no JVD General: Negative for tenderness Chest Wall inspection of chest normal and palpation of chest normal Chest: Negative for tenderness Resp normal respiratory effort and clear to auscultation bilaterally Effort and Inspection: Negative for respiratory distress or pain with movement Auscultation: Negative for rhonchi, wheezes or diminished lung sounds Cardio regular rate, regular rhythm, S1 normal heart sound, S2 normal heart sound and no murmurs Peripheral Pulses: pulses 2+ throughout GI normal to inspection, nondistended, normoactive bowel sounds, soft to palpation, non-tender, non-distended and no masses Back/Spine no CVA tenderness and no thoracic nor lumbar tenderness Extremity normal to inspection General Extremety ED: Negative for edema General Extremity: Negative for edema Neuro oriented x3, CN's II-XII intact bilaterally, no sensory deficits noted and gait normal Sensorium / Orientation: awake, alert, oriented to person, oriented to place and oriented to time Motor Exam: strength 5/5 throughout and strength abnormal Psych mental status grossly normal Skin no rashes or lesions noted and no wounds MDM MDM MDM Narrative Medical decision making narrative: Patient presents the emergency department with history of gastroenteritis that started a week and a half ago. Diarrhea is been better for over a week. Today she developed some nausea and vomited several times. Clinically she looks well. She has no abdominal pain. Because of her age EKG was obtained and showed sinus rhythm with ventricular rate of 88 bpm with no acute ST segment changes. CBC with differential was unremarkable. Chemistries unremarkable. LFTs were normal. Urinalysis normal. Troponin was normal. While in department she received a liter normal same fluid bolus and was given Zofran 4 mg IV and she felt markedly improved. This point she will be discharged to home with a prescription for Zofran. Advised to follow-up with her primary care physician within next 3 to 5 days. Lab Data Attestation: I reviewed the patient's lab results. Labs: Laboratory Results - last 24 hr 02/21/24 07:51 WBC 9.5 RBC 5.00 Hgb 13.8 Hct 42.5 MCV 85.0 MCH 27.6 MCHC 32.5 RDW Std Deviation 39.9 RDW Coeff of Jacqueline 12.9 Plt Count 312 MPV 9.6 Immature Gran % (Auto) 0.500 Neut % (Auto) 64.6 Lymph % (Auto) 24.1 [place] % (Auto) 8.7 Eos % (Auto) 1.4 Baso % (Auto) 0.7 Absolute Neuts (auto) 6.1 Absolute Lymphs (auto) 2.28 Nucleated RBC % 0 Sodium 139 Potassium 3.6 Chloride 103 Carbon Dioxide 28.0 Anion Gap 8 BUN 13 Creatinine 0.91 Estim Creat Clear Calc 53.17 Est GFR (MDRD) Af Amer 77 Est GFR (MDRD) Non-Af 64 BUN/Creatinine Ratio 14.2 Glucose 119 H Calcium 9.7 Total Bilirubin 0.40 AST 24 ALT 31 Alkaline Phosphatase 44 L Troponin I High Sens 4 Total Protein 7.6 Albumin 3.7 Globulin 3.9 Albumin/Globulin Ratio 0.9 Lipase 29 Urine Color Yellow Urine Clarity Clear Urine pH 7.0 Ur Specific [place] 1.005 Urine Protein 30 H Urine Glucose (UA) Normal Urine Ketones 5 H Urine Occult Blood 10 H Urine Nitrite Negative Urine Bilirubin Negative Urine Urobilinogen Normal Ur Leukocyte Esterase 25 H Urine RBC 0-5 SEEN Urine WBC 0-5 SEEN Ur Squamous Epith Cells 0-5 SEEN Urine Bacteria 0 SEEN Urine Mucus 0 SEEN EKG Initial EKG: Attestation: I personally reviewed and interpreted this EKG as follows: Comments: Sinus rhythm with rate of 88 bpm with no acute ST segment changes Discharge Plan Triage Chief Complaint: Nausea/Vomiting/Diarrhea ED Provider: Jessika Heart Dx/Rx/DC Orders Clinical Impression: Nausea & vomiting Instructions: ED Vomiting (Adult) Prescriptions: New ondansetron 4 mg tablet,disintegrating 4 mg PO Q8H PRN PRN (Reason: Nausea) Qty: 10 0RF No Action omega-3 fatty acids [Fish Oil Concentrate] 1,000 mg capsule 1,000 mg PO DAILY cholecalciferol (vitamin D3) 400 unit tablet 400 unit PO DAILY trazodone 100 mg tablet 100 mg PO QHS albuterol sulfate 90 mcg/actuation HFA aerosol inhaler 2 puff inhalation Q4-6H PRN (Reason: shortness of breath or wheezing) Qty: 6.7 0RF calcium carbonate 600 MG tablet 1,200 mg PO DAILY amlodipine 10 MG tablet 10 mg PO DAILY simvastatin 20 MG tablet 20 mg PO QHS olmesartan 20 MG tablet 20 mg PO DAILY multivitamin with folic acid 1 TABLET tablet 1 tab PO DAILY aspirin 81 MG tablet 81 mg PO DAILY@0800 Qty: 30 2RF Primary Care Provider: Rolo Chin Referrals: Rolo Chin MD [Primary Care Provider] - 3-5 Days Print Language: Palestinian Disposition Disposition: Home, Self Care Discharge Date/Time: 02/21/24 10:19
[2024-02-21] MEDS: 0.9% Normal Saline (1000mL) 1,000 ML 1000 ML IV (07:50)
[2024-02-21] MEDS: Ondansetron 4 MG/2 ML Vial IV (07:50)
[2024-02-21 07:57] VITALS: BMI 35.9
[2024-02-21 08:02] LABS: Bacteria 0 SEEN /hpf (None Seen); Mucous, Urine 0 SEEN /hpf (<or=2+)
[2024-02-21 08:04] LABS: Color, Urine Yellow (Yellow); Glucose, Dipstick Normal (Normal); Ketone-Dipstick 5 mg/dl (Negative); Leukocyte Esterase-Dipstick 25 /ul (Negative); Nitrite-Dipstick Negative (Negative); Occult Blood-Urine 10 /ul (Negative); Protein-Dipstick 30 mg/dl (Negative); Specific Gravity, Urine 1.005 (1.002-1.030); Urine Bilirubin Dipstick Negative (Negative); Urine Clarity Clear (Clear); Urine Urobilinogen Normal (Normal)
[2024-02-21 08:06] LABS: Absolute Lymphocyte Count 2.28 X10^3/uL (0.83-4.51); Absolute Neutrophil Count 6.1 X10^3/uL (2.0-7.7); Basophil# 0.07 X10^3/uL; Basophil% 0.7 % (0-1); Eosinophil# 0.13 X10^3/uL; Eosinophils% 1.4 % (0-5); Hematocrit 42.5 % (37-47); Hemoglobin 13.8 g/dL (12.0-15.0); Lymphocyte # 2.28 X10^3/ul (0.83-4.51); Lymphocyte % 24.1 % (19-41); Mean Corp Hgb Conc 32.5 g/dL (32-36); Mean Corpuscular Hgb 27.6 pg (27.0-32.0); Mean Platelet Vol. 9.6 fl (6.2-12.0); Monocyte# 0.82 X10^3/uL; Monocyte% 8.7 % (0-10); NRBC Flagged by Analyzer 0 % (0-5); Neutrophil # 6.11 X10^3/uL (2.7-7.7); Neutrophil % 64.6 % (47-70); Platelet Count 312 K/mm3 (150-450); RBC Distribution Width CV 12.9 % (11.6-14.6); RBC Distribution Width SD 39.9 fl (35.1-43.9); White Blood Count 9.5 K/mm3 (4.4-11.0)
[2024-02-21 08:10] LABS: Red Blood Cells-Urine 0-5 SEEN /hpf (0-5); Squamous Epithelial Cells - UA 0-5 SEEN /hpf (5-10); White Blood Cells 0-5 SEEN /hpf (0-5)
[2024-02-21 09:32] VITALS: BP 122/64; PULSE 84; RESP 18; TEMP 36.7; O2SAT 96
[2024-02-21 09:45] LABS: ALB/GLOB Ratio 0.9 RATIO (0.9-2.4); AST(SGOT) 24 U/L (15-37); Alanine Aminotransfer ALT/SGPT 31 U/L (13-56); Albumin, Serum 3.7 g/dL (3.2-5.0); Alkaline Phosphatase 44 U/L (45-117); Anion Gap 8 (5-15); BUN 13 mg/dL (7-18); BUN/Creat Ratio 14.2 RATIO (10-20); Calcium,Total 9.7 mg/dL (8.5-10.1); Chloride 103 mmol/L (98-107); Creatinine, Serum 0.91 mg/dL (0.55-1.02); EST Glomerular Filtration Rate 64 mL/min (>60); Est Glom Filt Rate - Afr Amer 77 mL/min (>60); Estimated Creatinine Clearance 53.17 ml/min; Globulin 3.9 g/dL (2.2-4.2); Glucose 119 mg/dL (74-106); Lipase 29 U/L (13-75); Potassium 3.6 mmol/L (3.5-5.1); Protein, Total 7.6 g/dL (6.4-8.2); Sodium Level 139 mmol/L (136-145); Troponin-I HS 4 pg/mL (3.0-54.0)
[2024-02-21 10:18] VITALS: BP 121/79; PULSE 91; RESP 16; TEMP 36.2; O2SAT 100
== END 2024-02-21 10:19 | disposition home or self-care (01) ==
PROVIDERS: Emergency Provider Emergency Medicine; PCP Family Medicine; Visit Provider Emergency Medicine
DX: R11.2 Nausea with vomiting, unspecified (principal); I25.10 Atherosclerotic heart disease of native coronary artery without angina pectoris; I10 Essential (primary) hypertension; Z79.82 Long term (current) use of aspirin; Z79.899 Other long term (current) drug therapy
CPT/HCPCS: 80053; 81001; 83690; 84484; 85025; 93005; 96361; 96374; 99283; J7030; A4216; J2405

== ENCOUNTER → 2024-03-02 | Outpatient (CLI) | payer MEDICARE, SELFPAY ==
--- NOTE | 2024-03-02 07:33 | BI_ITS ---
MAMMOGRAPHY - BILATERAL SCREENING REASON FOR EXAM: Female, 78 years old. Routine annual screening examination. PERTINENT HISTORY: Non-contributory. TECHNIQUE: Digital bilateral breast mukul (3D mammographic acquisition) in the CC and MLO projections. 2-D mediolateral oblique (MLO) and craniocaudad (CC) views of both breasts were obtained. CAD: Full Field Digital Mammography with Computer Added Detection was performed. COMPARISON: Comparison is made with prior study dated March 01, 2023 and February 15, 2022. FINDINGS: Breast Composition: There are scattered areas of fibroglandular density. There are no dominant masses or suspicious calcifications. No other significant abnormalities are identified. Stable small benign-appearing bilateral axillary BI/SCRN MAMM (CAD)W/MUKUL BILAT IMPRESSION: Stable bilateral screening mammogram. Yearly follow-up mammogram recommended. (A) ASSESSMENT CATEGORY: BIRADS Category 2: Benign. A letter regarding these results will be sent to the patient by the facility within 30 days. Approximately 10% of breast cancers are not detected by mammography. A normal mammogram should not delay biopsy of a clinically suspicious abnormality. [id number] Electronically Signed: Tyrell Quintana MD at 8:39 EDT ,
== END | disposition home or self-care (01) ==
LOC: OPBI 07:32
PROVIDERS: PCP Family Medicine; Referring Provider Family Medicine; Visit Provider Family Medicine
DX: Z12.31 Encounter for screening mammogram for malignant neoplasm of breast (principal)
CPT/HCPCS: 77063; 77067

== ENCOUNTER 2024-04-18 08:33 | Day surgery (SDC) | payer MEDICARE, SELFPAY ==
[2024-04-18 09:01] VITALS: BP 124/65; PULSE 76; RESP 16; TEMP 36.7; O2SAT 98
--- NOTE | 2024-04-18 09:07 | PCM.PRE.AN2 ---
ASA Classification* ASA Classification ASA Classification: 3 Assessment & Plan Anesthesia* Anesthesia Assessment Anesthesia Assessment: Discussed sedation and/or anesthesia options, risks, benefits, and alternatives with patient/parents/legal guardian/POA. Questions invited. The patient/parents/legal guardian/POA seems to understand and agrees to proceed with anesthesia plan. Reviewed the physical assessment, medical history, allergy history and patient home medications list prior to surgery/procedure/anesthetic and documented any changes. Performed airway and anesthesia risk assessments. Anesthesia Type Anesthesia Type: MAC Anesthesia Focused Assessment* Airway Assessment Mouth opens: >3 cm Mallampati Score: II Focused Labs Anesthesia Preop lab: CBC WBC 9.5 K/mm3 (4.4-11.0) 02/21/24 07:51 RBC 5.00 M/mm3 (4.2-5.4) 02/21/24 07:51 Hgb 13.8 g/dL (12.0-15.0) 02/21/24 07:51 Hct 42.5 % (37-47) 02/21/24 07:51 Plt Count 312 K/mm3 (150-450) 02/21/24 07:51 CHEMISTRY Potassium 3.6 mmol/L (3.5-5.1) 02/21/24 07:51 Sodium 139 mmol/L (136-145) 02/21/24 07:51 BUN 13 mg/dL (7-18) 02/21/24 07:51 Creatinine 0.91 mg/dL (0.55-1.02) 02/21/24 07:51 Glucose 119 mg/dL (74-106) H 02/21/24 07:51 COAG PT 14.0 SECONDS (11.7-14.9) 04/03/18 05:15 Pre-Assessment Diagnosis/Proposed Procedure Planned Operative Procedure(s): EGD/CSCOPE Anesthesia History 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 When Was Last Pacemaker Check QUESTION #4 FULL TEXT: You/Your Family Experience fever (hyperthermia) with Anesthesia Last Oral Intake Last Oral intake: Last Oral Intake NPO since Meds taken in AM with sips of water? Meds patient instructed to take am of surgery PONV PONV - photographic equipment inspector: PONV - photographic equipment inspector Female Yes 04/16/24 14:57 HX of Motion Sickness No 04/16/24 14:57 HX of N/V After Surgery No 04/16/24 14:57 Non-Smoker Yes 04/16/24 14:57 Duration of Surgery greater No 04/16/24 14:57 than 60 minutes Number of Risk Factors 2 04/16/24 14:57 PONV Score Moderate Risk 04/16/24 14:57 Height & Weight Height & Weight: Anesthesia: Height & Weight Height 5 ft 2 in 03/14/24 08:44 Respiratory Assessment Respiratory Assessment - photographic equipment inspector: Respiratory Tract Infection Hx - photographic equipment inspector Hx Respiratory Tract Infection No 04/16/24 14:57 STOP Sleep Apnea STOP Sleep Apnea - photographic equipment inspector: STOP Sleep Apnea - photographic equipment inspector Hx Hypertension Yes: CONTROLLED WITH MED 04/16/24 14:57 Hx Sleep Apnea No 04/16/24 14:57 CPAP No 04/24/19 08:35 BIPAP Do you snore loudly (louder No 04/16/24 14:57 than talking or can be heard Do you often feel tired/ No 04/16/24 14:57 fatigued/ sleepy during daytime? Has anyone observed you stop No 04/16/24 14:57 breathing during sleep? STOP Results Negative 04/16/24 14:57 QUESTION #5 FULL TEXT : Do you snore loudly (louder than talking or can be heard through closed doors)? Tobacco Use History Tobacco Use History - photographic equipment inspector: Tobacco Use History - photographic equipment inspector Tobacco Use Smoking Status Never smoker 04/16/24 14:57 Hx Tobacco Use No 04/16/24 14:57 Years Smoking Packs Smoked per Day Smoking Cessation Date was within the last 15 years Hx Smoking Cessation Date Hx Smoking Cessation Counseling Hematologic Medial History Hematologic Hx - photographic equipment inspector: Hematologic Medical Hx - watch train inspector Hx of Blood Transfusion No 04/16/24 14:57 Hx of Transfusion in last 3 No 04/16/24 14:57 Months Date of Last Transfusion (if within last 3 months) Ever experience any problems No 04/16/24 14:57 with transfusion(s)? Specify any problems Hx of Preganancy in last 3 No 04/16/24 14:57 Months Nurse Filling Out Transfusion DSCHRIBER 04/16/24 14:57 & Questions: Date: 04/16/24 04/16/24 14:57 Time: 15:00 04/16/24 14:57 Patient unable to answer at this time (ie. confused, unrespo /Reproduction History /Reproductive History - photographic equipment inspector: /Reproductive Hx- photographic equipment inspector Hx Now No 04/16/24 14:57 Gestational Age (in weeks): EDC: Hx Hx Para Hx Section SAB No 04/16/24 14:57 [facility] Medical History Wears glasses Cancer Post-menopausal Anxiety Alcohol use History of steroid therapy Arthritis High cholesterol Back pain History of hiatal hernia Gastric reflux Non-smoker History of edema History of stress test Cardiology follow-up encounter Glaucoma History of arteriovenous malformation (AVM) Rectal bleeding Adenoid cystic carcinoma Blood in stool Constipation Atherosclerotic heart disease of [place] coronary artery with other forms of angina pectoris HTN (hypertension) Home Medications ?Medication ?Instructions ?Recorded ?Last Taken ?Type amlodipine 10 mg tablet 10 mg PO DAILY BP 04/01/18 04/24/19 05:30 History 10 MG calcium carbonate 1,200 mg PO DAILY supplement 04/01/18 03/31/18 History multivitamin with folic acid 400 1 tab PO DAILY supplement 04/01/18 03/31/18 History mcg tablet olmesartan 20 mg tablet 20 mg PO DAILY BP 04/01/18 04/24/19 05:30 History 20 MG simvastatin 20 mg tablet 20 mg PO QHS cholesterol 04/01/18 03/31/18 History cholecalciferol (vitamin D3) 10 400 unit PO DAILY 04/19/19 Unknown History mcg (400 unit) tablet trazodone 100 mg tablet 100 mg PO QHS 01/22/24 Unknown History sucralfate 1 gram tablet 1 g PO QACHS #56 tabs 03/14/24 Unknown Rx latanoprost 0.005 % eye drops 1 drp RIGHT EYE DAILY 04/16/24 Unknown History omeprazole 20 mg capsule,delayed 20 mg PO DAILY 04/16/24 Unknown History release Allergy/AdvReac Type Severity Reaction Status Date / Time losartan AdvReac Severe Fatigue, Verified 04/16/24 14:55 cough, and chest pain Family History Father CAD (coronary artery disease) <55 Heart disease Hypertension Brother CAD (coronary artery disease) Heart disease Mother Pancreatic cancer Surgical History Hx of right cataract extraction Hx of left cataract extraction Hx of colonoscopy History of tonsillectomy and adenoidectomy Hx of dilation and curettage Hx of local excision of skin lesion History of left heart catheterization (04/03/18) Social History Smoking Status: Never smoker second hand exposure: No alcohol intake: current alcohol intake frequency: holidays/special occasions only substance use type: does not use caffeine: Yes what type of physical activity do you participate in: walking and other frequency: 1-2 times per week seatbelt use: always Review of Systems (Anesthesia) ROS Narrative System reviewed and no additional complaints, except as documented.
--- NOTE | 2024-04-18 09:30 | COLBX_PTH ---
PATIENT: ИРИНА MAIER LOC: EN U#:[id number] AGE/SX: 78/F ROOM: RE04/18/[address]: Dr. Jazmyne Kikrpatrick MD : 1945 BED: DIS: 04/18/2024 SPEC #: [id number] RECD: 04/18/24 11:44 STATUS: ALMAZ ANTOINE #: [id number] KRISTY: 04/18/24 09:[address]: Jazmyne Kirkpatrick DEPT: SURGICAL PATHOLOGY RECD BY: Lizzy Beal ENTERED: 04/18/24 12:06 SP TYPE: COLON BX OTHR DR: Dr. Rolo Chin MD Tissues: Gastric mucous membrane Procedures: Surgery Specimen Level IV HEADER OPERATION: Colonoscopy, EGD with biopsy PRE-OP DIAGNOSIS: Left upper quadrant abdominal pain, history of adenomatous polyp of colon TISSUE SUBMITTED: Antrum biopsy MICROSCOPIC DIAGNOSIS Antrum, biopsy: Mild gastritis. See microscopic description and comment. MARJAN/ 04/19/2024 COMMENT The results of immunohistochemistry for Helicobacter pylori will be reported separately ([id number]). MICROSCOPIC DESCRIPTION Slides are reviewed. The specimen shows fragments of gastric mucosa with chronic inflammatory cell infiltrates in the lamina propria consisting of lymphocytes and plasma cells, consistent with mild chronic gastritis. GROSS DESCRIPTION Received in fixative is one container labeled with the patient's name and designated Antrum biopsy. The specimen consists of one irregular fragment of light rubi soft tissue that measures 0.3 x 0.2 x 0.1 cm. The specimen is totally submitted in one cassette. 04/18/2024 TC:3 CPT:84746
--- NOTE | 2024-04-18 09:30 | IMM_PTH ---
PATIENT: ИРИНА MAIER LOC: EN U#:[id number] AGE/SX: 78/F ROOM: RE04/18/[address]: Dr. Jazmyne Kirkpatrick MD : 1945 BED: DIS: 04/18/2024 SPEC #: [id number] RECD: 04/18/24 12:11 STATUS: ALMAZ REQ #: [id number] KRISTY: 04/18/24 09:[address]: Jazmyne Kirkpatrick DEPT: IMMUNOHISTOCHEMISTRY RECD BY: Russell Saab ENTERED: 04/18/24 12:12 SP TYPE: IMMUNO OTHR DR: Dr. Rolo Chin MD Tissues: Gastric mucous membrane Procedures: H Pylori (initial) PHYSICIAN & INSTITUTION [place] [id number] SPECIMEN INFORMATION: Tissue Source: Antrum biopsy Clinical Info: Left upper quadrant abdominal pain, history of adenomatous polyp of colon Specimen Number: [id number] CPT code: 70465 METHODOLOGY: Deparaffinized sections of prefer/formalin-fixed tissue or PAP/DQ stained slides are incubated with monoclonal/polyclonal antibodies/oligonucleotide probes. Localization is made via biotin free immunoperoxidase method. Appropriate controls are performed and reacted as expected. Results on target cell population are indicated in the following table: RESULTS: ANTIBODY / CLONE RESULT H Pylori (polyclonal) negative These tests were developed and their performance characteristics determined by [facility]. They may not have been cleared or approved by the U.S. Food and Drug Administration. The FDA has determined that such clearance or approval is not necessary. The above immunohistochemical/dualISH markers are ordered and reviewed by the Pathologist. INTERPRETATION: Antrum, biopsy: Negative for Helicobacter pylori organisms. MARJAN/ 04/19/2024
--- NOTE | 2024-04-18 09:37 | H&P.OPEN ---
[facility] - General General Date of Service: 04/18/24 [facility] Narrative ИРИНА MAIER, is a 78 F who presents for an EGD and colonoscopy due to left upper quadrant pain as well as history of colon polyp. Patient did get Carafate in the office states that did help however the pain did come back and left upper quadrant after discontinuing?after 2 weeks patient still taking omeprazole 40 mg p.o. daily. Otherwise patient denies any changes. office visit 03/14/24 [facility] HPI: 78-year-old female presents due to screening colonoscopy due to history of colon polyp. Patient had a colonoscopy [address] Ingram which showed 1 cm tubular adenoma which was removed completely by snare. Patient states that in January she did have COVID and did get prednisone for her cough and then also got a sinus infection and got amoxicillin. Patient did have a salad and is up with likely food poisoning after that with nausea vomiting diarrhea. Patient did states she noticed occasional black stools but was taking Pepto-Bismol did have that checked at her PCP which patient states was negative for blood. Patient does admit to some intermittent left upper quadrant discomfort since all of those recent health events. Patient's bowel movements daily denies any blood patient does have hemorrhoids that she is aware of. Patient also had an EGD [address] Ingram which had a Schatzki's ring which was biopsied patient denies any issues with dysphagia. The patient is on omeprazole 40 mg p.o. daily and denies bringing up her esophagus with that medication. But does note that the left upper quadrant pain can be worse with coffee or spicy or foods. [facility] Medical History Wears glasses Cancer Post-menopausal Anxiety Alcohol use History of steroid therapy Arthritis High cholesterol Back pain History of hiatal hernia Gastric reflux Non-smoker History of edema History of stress test Cardiology follow-up encounter Glaucoma History of arteriovenous malformation (AVM) Rectal bleeding Adenoid cystic carcinoma Blood in stool Constipation Atherosclerotic heart disease of [place] coronary artery with other forms of angina pectoris HTN (hypertension) Home Medications ?Medication ?Instructions ?Recorded ?Last Taken ?Type amlodipine 10 mg tablet 10 mg PO DAILY BP 04/01/18 04/24/19 05:30 History 10 MG calcium carbonate 1,200 mg PO DAILY supplement 04/01/18 03/31/18 History multivitamin with folic acid 400 1 tab PO DAILY supplement 04/01/18 03/31/18 History mcg tablet olmesartan 20 mg tablet 20 mg PO DAILY BP 04/01/18 04/24/19 05:30 History 20 MG simvastatin 20 mg tablet 20 mg PO QHS cholesterol 04/01/18 03/31/18 History cholecalciferol (vitamin D3) 10 400 unit PO DAILY 04/19/19 Unknown History mcg (400 unit) tablet trazodone 100 mg tablet 100 mg PO QHS 01/22/24 Unknown History sucralfate 1 gram tablet 1 g PO QACHS #56 tabs 03/14/24 Unknown Rx latanoprost 0.005 % eye drops 1 drp RIGHT EYE DAILY 04/16/24 Unknown History omeprazole 20 mg capsule,delayed 20 mg PO DAILY 04/16/24 Unknown History release Allergy/AdvReac Type Severity Reaction Status Date / Time losartan AdvReac Severe Fatigue, Verified 04/16/24 14:55 cough, and chest pain Family History Father CAD (coronary artery disease) <55 Heart disease Hypertension Brother CAD (coronary artery disease) Heart disease Mother Pancreatic cancer Surgical History Hx of right cataract extraction Hx of left cataract extraction Hx of colonoscopy History of tonsillectomy and adenoidectomy Hx of dilation and curettage Hx of local excision of skin lesion History of left heart catheterization (04/03/18) Social History Smoking Status: Never smoker second hand exposure: No alcohol intake: current alcohol intake frequency: holidays/special occasions only substance use type: does not use caffeine: Yes what type of physical activity do you participate in: walking and other frequency: 1-2 times per week seatbelt use: always Past Medical/Surgical History Planned Operation Planned Operative Procedure(s): EGD/CSCOPE S.O.S: No Previous Hospitalizations/Surgeries HX Hospitalizations: No HX of Surgeries: skin lesion removed from back d&c cscope Any Problems With Anesthesia: Yes (WOKE UP DURING PREVIOUS COLONOSCOPY YRS AGO) You/Your Family Experience Fever (Hyperthermia) With Anes: No Cholinesterase deficiency: No Cardiovascular Hx Chest Pain within Last 2 months: No Hx of Irregular Heartbeat and/or Afib: No (had seen whg 04/2018) Hx Heart Attack: No Hx Congestive Heart Failure: No Hx Rheumatic Fever: No Hx Hypertension: Yes (CONTROLLED WITH MED) Hx Internal Defibrillator: No Hx Pacemaker: No Hx Cardiac Catheterization: Yes (2018) Hx Cardiac Surgery/Stents/Etc.: No Hx Stress Test: No (echo 2018) Hx Pain in Legs when Walking/Leg Cramps: No Respiratory Chronic Cough: No HX of Shortness of Breath: No Hoarseness: No Hx Chronic Obstructive Pulmonary Disease (COPD): No Hx Asthma: No Hx Emphysema: No Hx Sleep Apnea: No CPAP: No Hx Respiratory Tract Infection/Cold (presently): No Do You Snore Loudly (louder than talking or can be heard): No Do You Often Feel Tired/ Fatigued/ Sleepy [place]ring Daytime?: No Has Anyone Observed You Stop Breathing During Sleep?: No Result (for STOP score): Negative Hx Smoking: No Smoking Status: Never smoker Gastrointestinal Controlled With Meds: Yes Hx Gastrointestinal Disorders: No Hx Gastrointestinal Bleed: No Hx Ulcer: No Hx Hiatal Hernia: Yes Difficulty Chewing/Swallowing: No Special diet followed at home: No Hx Unplanned Weight Loss of 20#: No HX Unplanned Weight Gain of 20#: No Neurological Hx Seizures: No HX Syncope/Blackout Spells/Unconsciousness: No Hx Transient Ischemic Attacks (TIA): No Hx Multiple Sclerosis: No Hx Parkinson's Disease: No Hx Head/Neck Injury: No Hx Headaches: Yes (occ) Hx Back Injury/Pain: No Recent Onset of Speech Difficulty: No Restless Legs: No Does patient have nerve stimulator: No Blood Disorder Hx Leukemia: No Bleeding Tendencies: No Hx Deep Vein Thrombosis: No Hx High Cholesterol: Yes (onmed) Blood Transmitted Disease: No Hx Hepatitis: No Hx Cirrhosis: No Hx Anemia: No Hx Blood Disorders: No Reproduction : No Is Patient Lactating: No Hx Hysterectomy: No Hx Tubal Ligation: No Are You Post Menopause: Yes Genitourinary Hx Renal Disease: No Hx Dialysis: No Musculoskeletal Hx Arthritis: Yes Hx Rheumatoid Arthritis: No Hx Gout: No Recent Onset of an Orthopedic Problem: No Endocrine Hx Diabetes: No Thyroid Disease: No Hx Steroid Therapy: No Psycho/Social Hx Substance Use: No Hx Alcohol Use: No Hx Anxiety: Yes (in the past) Hx Depression: Yes (in the past) Hx Dementia: No Miscellaneous Hx Cancer: Yes (SKIN) Recent Exposure to Contagious Disease: No Hx of C-Diff: No Any Loose Teeth: No Allergies losartan Adverse Reaction (Severe, Verified 04/16/24 14:55) Fatigue, cough, and chest pain Paternal: Family History Father CAD (coronary artery disease) Heart disease Hypertension Brother CAD (coronary artery disease) Heart disease Mother Pancreatic cancer Heart Disease ( at 49) Discharge Is Pt Admitted From a Intermediate, or a Half-Way: No After D/C, Where Do you Plan to Go: Return Home From the [facility] History Number of Risk Factors: 4 Vital Signs Vital Signs Vital Signs: 04/18/24 09:01 04/18/24 09:01 Temperature 98.1 F Temperature Source Temporal Pulse Rate 76 Respiratory Rate 16 Respiratory Pattern Normal Blood Pressure 124/65 H Blood Pressure Mean 84 Blood Pressure Source Monitor Blood Pressure Position Semi-Fowlers Blood Pressure Location Left Arm Pulse Ox 98 Oxygen Delivery Method Room Air Weight Weight: 185 lb 3.013 oz Physical Exam Const alert, oriented x3 and no apparent distress HEENT normocephalic and head/scalp atraumatic Resp normal respiratory effort Cardio regular rate GI soft to palpation and non-tender; Negative for non-distended Palpation: Negative for guarding Extremity no clubbing, cyanosis or edema Skin no rashes or lesions noted Neuro CN's II-XII intact bilaterally Psych mental status grossly normal Assessment & Plan Assessment/Plan (1) LUQ abdominal pain: (2) Hx of adenomatous polyp of colon: Surgery Risks - Colonoscopy I discussed with the patient the risks of the procedure: Yes Risks Include but are not Limited To: Plan for an EGD and colonoscopy risks include but are not limited to: Bleeding, perforation requiring further surgery, inability to complete colonoscopy requiring barium enema.
[2024-04-18] MEDS: Lactated Ringers 1,000 ML 15 ML IV (09:43)
--- NOTE | 2024-04-18 10:58 | OP.CCLET_ITS ---
04/18/2024 Rolo Chin MD [address] [place] [address] Re : Upper GI endoscopy procedure for Marita Partida Dear Dr. Chin This procedure was performed on Thursday, April 18, 2024. My impressions and recommendations are as follows: Impressions : - Small hiatal hernia. - Normal examined duodenum. - Erythematous mucosa in the antrum. Biopsied. - Widely patent and mild Schatzki ring. Recommendations : - Await pathology results. - Discharge patient to home. - Resume previous diet. - Continue present medications. - Use sucralfate tablets 1 gram PO QID for 2 weeks. My findings are described in the full procedure note, which is enclosed. If I can be of further assistance, please feel free to contact me at Doctor phone number(s): , Work: . Sincerely, MD Jazmyne Chisholm MD 04/18/2024 10:58:07 AM This report has been signed electronically.
--- NOTE | 2024-04-18 10:58 | OP.EGD_ITS ---
Patient Name: Marita Partida Procedure Date: 04/18/2024 10:37 AM Date of : 1945 Age: 78 Procedure: Upper GI endoscopy Indications: Abdominal pain in the left upper quadrant, Heartburn Providers: Jazmyne Kirkpatrick MD Referring MD: Rolo Chin MD Medicines: Monitored Anesthesia Care Patient Profile: This is a 78 year old female. Complications: No immediate complications. Procedure: Pre-Anesthesia Assessment: - Prior to the procedure, a History and Physical was performed, and patient medications and allergies were reviewed. The patient's tolerance of previous anesthesia was also reviewed. The risks and benefits of the procedure and the sedation options and risks were discussed with the patient. All questions were answered, and informed consent was obtained. Prior Anticoagulants: The patient has taken no anticoagulant or antiplatelet agents. ASA Grade Assessment: Per anesthesia. After reviewing the risks and benefits, the patient was deemed in satisfactory condition to undergo the procedure. After obtaining informed consent, the endoscope was passed under direct vision. Throughout the procedure, the patient's blood pressure, pulse, and oxygen saturations were monitored continuously. The Endoscope was introduced through the mouth, and advanced to the second part of duodenum. The upper GI endoscopy was accomplished without difficulty. The patient tolerated the procedure well. Scope In: 10:40:35 AM Scope Out: 10:43:58 AM Total Procedure Duration Time 0 hours 3 minutes 23 seconds Findings: A small hiatal hernia was present. The examined duodenum was normal. Localized mildly erythematous mucosa without bleeding was found in the gastric antrum. Biopsies were taken with a cold forceps for histology. Biopsies were taken with a cold forceps for Helicobacter pylori cultures. A widely patent and mild Schatzki ring was found in the distal esophagus. Impression: - Small hiatal hernia. - Normal examined duodenum. - Erythematous mucosa in the antrum. Biopsied. - Widely patent and mild Schatzki ring. Recommendation: - Await pathology results. - Discharge patient to home. - Resume previous diet. - Continue present medications. - Use sucralfate tablets 1 gram PO QID for 2 weeks. Procedure Code(s): --- Professional --- 72964, Esophagogastroduodenoscopy, flexible, transoral; with biopsy, single or multiple Diagnosis Code(s): --- Professional --- K44.9, Diaphragmatic hernia without obstruction or gangrene K31.89, Other diseases of stomach and duodenum K22.2, Esophageal obstruction R10.12, Left upper quadrant pain R12, Heartburn CPT copyright 2021 [employer]. All rights reserved. The codes documented in this report are preliminary and upon chief communications officer review may be revised to meet current compliance requirements. MD Jazmyne Chisholm MD 04/18/2024 10:58:07 AM This report has been signed electronically. Number of Addenda: 0 Note Initiated On: 04/18/2024 10:37 AM
--- NOTE | 2024-04-18 10:59 | PCM.POST.ANE ---
Anesthesia: Postop Eval I Current Vital Signs Temperature: 98.4 F Pulse Rate: 80 Blood Pressure: 120/68 Respiratory Rate: 16 Pulse Ox: 96 Oxygen Delivery Method: Room Air Assessment Airway patent: Yes Spontaneous unlabored respirations: Yes Mental status: Awake and Calm nausea: No Vomiting: No Anesthesia Complication: No Fluid Hydration Crystalloid volume administer (ml): 400 Total IV fluid infused: 400 Progress Note Anesthesia document: Postop Eval 1 completed: Yes
[2024-04-18 11:00] VITALS: BP 120/68; BP 124/65; PULSE 79; PULSE 80; RESP 16; TEMP 36.9; O2SAT 96; O2SAT 99
--- NOTE | 2024-04-18 11:01 | OP.COLON_ITS ---
Patient Name: Marita Partida Procedure Date: 04/18/2024 10:45 AM Date of : 1945 Age: 78 Procedure: Colonoscopy Indications: High risk colon cancer surveillance: Personal history of colonic polyps Providers: Jazmyne Kirkpatrick MD Referring MD: Rolo Chin MD Medicines: Monitored Anesthesia Care Patient Profile: This is a 78 year old female. Last Colonoscopy: April 2019. Complications: No immediate complications. Procedure: Pre-Anesthesia Assessment: - Prior to the procedure, a History and Physical was performed, and patient medications and allergies were reviewed. The patient's tolerance of previous anesthesia was also reviewed. The risks and benefits of the procedure and the sedation options and risks were discussed with the patient. All questions were answered, and informed consent was obtained. Prior Anticoagulants: The patient has taken no anticoagulant or antiplatelet agents. ASA Grade Assessment: Per anesthesia. After reviewing the risks and benefits, the patient was deemed in satisfactory condition to undergo the procedure. After I obtained informed consent, the scope was passed under direct vision. Throughout the procedure, the patient's blood pressure, pulse, and oxygen saturations were monitored continuously. The Colonoscope was introduced through the anus with the intention of advancing to the cecum. The scope was advanced to the sigmoid colon before the procedure was aborted. Medications were given. The colonoscopy was technically difficult and complex due to poor bowel prep with stool present. The patient tolerated the procedure well. The quality of the bowel preparation was poor. Scope In: 10:45:48 AM Scope Out: 10:51:37 AM Total Procedure Duration Time 0 hours 5 minutes 49 seconds Findings: Hemorrhoids were found on perianal exam. Multiple small and large-mouthed diverticula were found in the sigmoid colon. Impression: - Preparation of the colon was poor. - Hemorrhoids found on perianal exam. - Diverticulosis in the sigmoid colon. - No specimens collected. Recommendation: - Discharge patient to home. - Resume previous diet. - Continue present medications. - Repeat colonoscopy at appointment to be scheduled because the bowel preparation was poor. Procedure Code(s): --- Professional --- G0105, 53,PT, Colorectal cancer screening; colonoscopy on individual at high risk Diagnosis Code(s): --- Professional --- Z86.010, Personal history of colonic polyps K64.9, Unspecified hemorrhoids K57.30, Diverticulosis of large intestine without perforation or abscess without bleeding CPT copyright 2021 [employer]. All rights reserved. The codes documented in this report are preliminary and upon can maker review may be revised to meet current compliance requirements. MD Jazmyne Chisholm MD 04/18/2024 11:00:47 AM This report has been signed electronically. Number of Addenda: 0 Note Initiated On: 04/18/2024 10:45 AM
--- NOTE | 2024-04-18 11:01 | OP.CCLET_ITS ---
04/18/2024 Rolo Chin MD [address] [id number] Re : Colonoscopy procedure for Marita Partida Dear Dr. Chin This procedure was performed on Thursday, April 18, 2024. My impressions and recommendations are as follows: Impressions : - Preparation of the colon was poor. - Hemorrhoids found on perianal exam. - Diverticulosis in the sigmoid colon. - No specimens collected. Recommendations : - Discharge patient to home. - Resume previous diet. - Continue present medications. - Repeat colonoscopy at appointment to be scheduled because the bowel preparation was poor. My findings are described in the full procedure note, which is enclosed. If I can be of further assistance, please feel free to contact me at Doctor phone number(s): , Work: . Sincerely, MD Jazmyne Chisholm MD 04/18/2024 11:00:47 AM This report has been signed electronically.
[2024-04-18 11:05] VITALS: BP 105/61; BP 124/65; PULSE 77; RESP 16; O2SAT 96
[2024-04-18 11:10] VITALS: BP 101/51; BP 124/65; PULSE 78; RESP 16; TEMP 36.4; O2SAT 96
[2024-04-18 11:36] VITALS: BP 124/65
--- NOTE | 2024-04-18 12:34 | PCM.POSTANE2 ---
Anesthesia Postop Eval I Sum Postop Eval Completion status Anesthesia document: Postop Eval 1 completed: Yes Anesthesia Postop Eval I Summary Anesthesia Postop Eval I Summary: Anesthesia Postop Eval I: Assessment Summary Airway patent Yes 04/18/24 11:00 Spontaneous unlabored Yes 04/18/24 11:00 respirations Mental status Awake,Calm 04/18/24 11:00 nausea No 04/18/24 11:00 Vomiting No 04/18/24 11:00 Anesthesia Postop Eval I: Fluid Summary Crystalloid volume administer 400 04/18/24 11:00 (ml) Colloids volume administered ( ml) Blood Product volume administered (ml) Total IV fluid infused 400 04/18/24 11:00 Anesthesia Postop Eval I: Summary Notes Anesthesia Complication No 04/18/24 11:00 Anesthesia Complication Comment: Post-operative progress note Anesthesia: Postop Eval II Evaluation Mental status: Awake Pain Level: 0 nausea: No Vomiting: No
== END 2024-04-18 11:40 | disposition home or self-care (01) ==
LOC: EN 08:35 → AC 08:36
PROVIDERS: PCP Family Medicine; Referring Provider Family Medicine; Visit Provider Surgery
PROC: 0DJD8ZZ Inspection of Lower Intestinal Tract, Via Natural or Artificial Opening Endoscopic (ICD-10-PCS; CPT 45378; principal; 2024-04-18 09:25)
DX: Z12.11 Encounter for screening for malignant neoplasm of colon (principal); K57.30 Diverticulosis of large intestine without perforation or abscess without bleeding; K64.9 Unspecified hemorrhoids; K22.2 Esophageal obstruction; K44.9 Diaphragmatic hernia without obstruction or gangrene; K29.50 Unspecified chronic gastritis without bleeding; K31.89 Other diseases of stomach and duodenum; K21.9 Gastro-esophageal reflux disease without esophagitis; I10 Essential (primary) hypertension; I25.10 Atherosclerotic heart disease of native coronary artery without angina pectoris; E78.00 Pure hypercholesterolemia, unspecified; R10.12 Left upper quadrant pain; Z79.899 Other long term (current) drug therapy; Z53.8 Procedure and treatment not carried out for other reasons; Z86.010 Personal history of colon polyps; Z86.16 Personal history of COVID-19
CPT/HCPCS: 45330; 43239; 88305; 88342; J7120; J2405

== ENCOUNTER 2024-05-16 07:29 | Day surgery (SDC) | payer MEDICARE, SELFPAY ==
[2024-05-16] VITALS (8 sets, daily range): BP systolic 87–117; BP diastolic 49–67; PULSE 67–80; RESP 16–20; TEMP 36.4–36.6; O2SAT 92–100; BMI 33.0
--- NOTE | 2024-05-16 08:04 | PCM.HP.BLA ---
History and Physical Date of Admission: 05/16/24 04/18/24 0937 MR#: [id number] Acct: [id number] Name: ИРИНА MAIER Rep #: [id number] : 1945 78 From: Jazmyne Kirkpatrick MD PCP: Dr. Rolo Chin MD Status: [facility] Location: [address] - General General Date of Service: 04/18/24 HPI Narrative ИРИНА MAIER, is a 78 F who presents for an EGD and colonoscopy due to left upper quadrant pain as well as history of colon polyp. Patient did get Carafate in the office states that did help however the pain did come back and left upper quadrant after discontinuing?after 2 weeks patient still taking omeprazole 40 mg p.o. daily. Otherwise patient denies any changes. office visit 03/14/24 HPI HPI: 78-year-old female presents due to screening colonoscopy due to history of colon polyp. Patient had a colonoscopy [address] Ingram which showed 1 cm tubular adenoma which was removed completely by snare. Patient states that in January she did have COVID and did get prednisone for her cough and then also got a sinus infection and got amoxicillin. Patient did have a salad and is up with likely food poisoning after that with nausea vomiting diarrhea. Patient did states she noticed occasional black stools but was taking Pepto-Bismol did have that checked at her PCP which patient states was negative for blood. Patient does admit to some intermittent left upper quadrant discomfort since all of those recent health events. Patient's bowel movements daily denies any blood patient does have hemorrhoids that she is aware of. Patient also had an EGD [address] Ingram which had a Schatzki's ring which was biopsied patient denies any issues with dysphagia. The patient is on omeprazole 40 mg p.o. daily and denies bringing up her esophagus with that medication. But does note that the left upper quadrant pain can be worse with coffee or spicy or foods. [facility] Medical History Wears glasses Cancer Post-menopausal Anxiety Alcohol use History of steroid therapy Arthritis High cholesterol Back pain History of hiatal hernia Gastric reflux Non-smoker History of edema History of stress test Cardiology follow-up encounter Glaucoma History of arteriovenous malformation (AVM) Rectal bleeding Adenoid cystic carcinoma Blood in stool Constipation Atherosclerotic heart disease of [place] coronary artery with other forms of angina pectoris HTN (hypertension) Home Medications ?Medication ?Instructions ?Recorded ?Last Taken ?Type amlodipine 10 mg tablet 10 mg PO DAILY BP 04/01/18 04/24/19 05:30 History 10 MG calcium carbonate 1,200 mg PO DAILY supplement 04/01/18 03/31/18 History multivitamin with folic acid 400 1 tab PO DAILY supplement 04/01/18 03/31/18 History mcg tablet olmesartan 20 mg tablet 20 mg PO DAILY BP 04/01/18 04/24/19 05:30 History 20 MG simvastatin 20 mg tablet 20 mg PO QHS cholesterol 04/01/18 03/31/18 History cholecalciferol (vitamin D3) 10 400 unit PO DAILY 04/19/19 Unknown History mcg (400 unit) tablet trazodone 100 mg tablet 100 mg PO QHS 01/22/24 Unknown History sucralfate 1 gram tablet 1 g PO QACHS #56 tabs 03/14/24 Unknown Rx latanoprost 0.005 % eye drops 1 drp RIGHT EYE DAILY 04/16/24 Unknown History omeprazole 20 mg capsule,delayed 20 mg PO DAILY 04/16/24 Unknown History release Allergy/AdvReac Type Severity Reaction Status Date / Time losartan AdvReac Severe Fatigue, Verified 04/16/24 14:55 cough, and chest pain Family History Father CAD (coronary artery disease) <55 Heart disease HypertensionBrother CAD (coronary artery disease) Heart diseaseMother Pancreatic cancer Surgical History Hx of right cataract extraction Hx of left cataract extraction Hx of colonoscopy History of tonsillectomy and adenoidectomy Hx of dilation and curettage Hx of local excision of skin lesion History of left heart catheterization (04/03/18) Social History Smoking Status: Never smoker second hand exposure: No alcohol intake: current alcohol intake frequency: holidays/special occasions only substance use type: does not use caffeine: Yes what type of physical activity do you participate in: walking and other frequency: 1-2 times per week seatbelt use: always Past Medical/Surgical History Planned Operation Planned Operative Procedure(s): EGD/CSCOPE S.O.S: No Previous Hospitalizations/Surgeries HX Hospitalizations: No HX of Surgeries: skin lesion removed from back d&c cscope Any Problems With Anesthesia: Yes (WOKE UP DURING PREVIOUS COLONOSCOPY YRS AGO) You/Your Family Experience Fever (Hyperthermia) With Anes: No Cholinesterase deficiency: No Cardiovascular Hx Chest Pain within Last 2 months: No Hx of Irregular Heartbeat and/or Afib: No (had seen wh 04/2018) Hx Heart Attack: No Hx Congestive Heart Failure: No Hx Rheumatic Fever: No Hx Hypertension: Yes (CONTROLLED WITH MED) Hx Internal Defibrillator: No Hx Pacemaker: No Hx Cardiac Catheterization: Yes (2017) Hx Cardiac Surgery/Stents/Etc.: No Hx Stress Test: No (echo 2017) Hx Pain in Legs when Walking/Leg Cramps: No Respiratory Chronic Cough: No HX of Shortness of Breath: No Hoarseness: No Hx Chronic Obstructive Pulmonary Disease (COPD): No Hx Asthma: No Hx Emphysema: No Hx Sleep Apnea: No CPAP: No Hx Respiratory Tract Infection/Cold (presently): No Do You Snore Loudly (louder than talking or can be heard): No Do You Often Feel Tired/ Fatigued/ Sleepy Dring Daytime?: No Has Anyone Observed You Stop Breathing During Sleep?: No Result (for STOP score): Negative Hx Smoking: No Smoking Status: Never smoker Gastrointestinal Controlled With Meds: Yes Hx Gastrointestinal Disorders: No Hx Gastrointestinal Bleed: No Hx Ulcer: No Hx Hiatal Hernia: Yes Difficulty Chewing/Swallowing: No Special diet followed at home: No Hx Unplanned Weight Loss of 20#: No HX Unplanned Weight Gain of 20#: No Neurological Hx Seizures: No HX Syncope/Blackout Spells/Unconsciousness: No Hx Transient Ischemic Attacks (TIA): No Hx Multiple Sclerosis: No Hx Parkinson's Disease: No Hx Head/Neck Injury: No Hx Headaches: Yes (occ) Hx Back Injury/Pain: No Recent Onset of Speech Difficulty: No Restless Legs: No Does patient have nerve stimulator: No Blood Disorder Hx Leukemia: No Bleeding Tendencies: No Hx Deep Vein Thrombosis: No Hx High Cholesterol: Yes (onmed) Blood Transmitted Disease: No Hx Hepatitis: No Hx Cirrhosis: No Hx Anemia: No Hx Blood Disorders: No Reproduction : No Is Patient Lactating: No Hx Hysterectomy: No Hx Tubal Ligation: No Are You Post Menopause: Yes Genitourinary Hx Renal Disease: No Hx Dialysis: No Musculoskeletal Hx Arthritis: Yes Hx Rheumatoid Arthritis: No Hx Gout: No Recent Onset of an Orthopedic Problem: No Endocrine Hx Diabetes: No Thyroid Disease: No Hx Steroid Therapy: No Psycho/Social Hx Substance Use: No Hx Alcohol Use: No Hx Anxiety: Yes (in the past) Hx Depression: Yes (in the past) Hx Dementia: No Miscellaneous Hx Cancer: Yes (SKIN) Recent Exposure to Contagious Disease: No Hx of C-Diff: No Any Loose Teeth: No Allergies losartan Adverse Reaction (Severe, Verified 04/16/24 14:55) Fatigue, cough, and chest pain Paternal: Family History Father CAD (coronary artery disease) Heart disease HypertensionBrother CAD (coronary artery disease) Heart diseaseMother Pancreatic cancer Heart Disease ( at 49) Discharge Is Pt Admitted From a [facility], or a [facility]: No After D/C, Where Do you Plan to Go: Return Home From the PAT History Number of Risk Factors: 4 Vital Signs Vital Signs Vital Signs: 04/18/2409:01 04/18/2409:01 Temperature 98.1 F Temperature Source Temporal Pulse Rate 76 Respiratory Rate 16 Respiratory Pattern Normal Blood Pressure 124/65 H Blood Pressure Mean 84 Blood Pressure Source Monitor Blood Pressure Position Semi-Fowlers Blood Pressure Location Left Arm Pulse Ox 98 Oxygen Delivery Method Room Air Weight Weight: 185 lb 3.013 oz Physical Exam Const alert, oriented x3 and no apparent distress HEENT normocephalic and head/scalp atraumatic Resp normal respiratory effort Cardio regular rate GI soft to palpation and non-tender; Negative for non-distended Palpation: Negative for guarding Extremity no clubbing, cyanosis or edema Skin no rashes or lesions noted Neuro CN's II-XII intact bilaterally Psych mental status grossly normal Assessment & Plan Assessment/Plan (1) LUQ abdominal pain: (2) Hx of adenomatous polyp of colon: Surgery Risks - Colonoscopy I discussed with the patient the risks of the procedure: Yes Risks Include but are not Limited To: Plan for an EGD and colonoscopy risks include but are not limited to: Bleeding, perforation requiring further surgery, inability to complete colonoscopy requiring barium enema. 04/18/24 0957 <Electronically signed by Jazmyne Kirkpatrick MD>
--- NOTE | 2024-05-16 08:50 | PRE.ANES_ITS ---
ASA Classification* ASA Classification ASA Classification: 2 Assessment & Plan Anesthesia* Anesthesia Assessment Anesthesia Assessment: Discussed sedation and/or anesthesia options, risks, benefits, and alternatives with patient/parents/legal guardian/POA. Questions invited. The patient/parents/legal guardian/POA seems to understand and agrees to proceed with anesthesia plan. Reviewed the physical assessment, medical history, allergy history and patient home medications list prior to surgery/procedure/anesthetic and documented any changes. Performed airway and anesthesia risk assessments. Anesthesia Type Anesthesia Type: MAC Anesthesia Focused Assessment* Temperature: 97.8 F Pulse Rate: 80 Blood Pressure: 117/67 Respiratory Rate: 16 Pulse Ox: 100 Airway Assessment Mouth opens: >3 cm Mallampati Score: II Focused Labs Anesthesia Preop lab: CBC WBC 9.5 K/mm3 (4.4-11.0) 02/21/24 07:51 RBC 5.00 M/mm3 (4.2-5.4) 02/21/24 07:51 Hgb 13.8 g/dL (12.0-15.0) 02/21/24 07:51 Hct 42.5 % (37-47) 02/21/24 07:51 Plt Count 312 K/mm3 (150-450) 02/21/24 07:51 CHEMISTRY Potassium 3.6 mmol/L (3.5-5.1) 02/21/24 07:51 Sodium 139 mmol/L (136-145) 02/21/24 07:51 BUN 13 mg/dL (7-18) 02/21/24 07:51 Creatinine 0.91 mg/dL (0.55-1.02) 02/21/24 07:51 Glucose 119 mg/dL (74-106) H 02/21/24 07:51 COAG PT 14.0 SECONDS (11.7-14.9) 04/03/18 05:15 Pre-Assessment Diagnosis/Proposed Procedure Planned Operative Procedure(s): EGD/CSCOPE Anesthesia History 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 When Was Last Pacemaker Check QUESTION #4 FULL TEXT: You/Your Family Experience fever (hyperthermia) with Anesthesia Last Oral Intake Last Oral intake: Last Oral Intake NPO since Meds taken in AM with sips of water? Meds patient instructed to take am of surgery PONV PONV - safe and vault installer: PONV - safe and vault installer Female Yes 05/15/24 09:20 HX of Motion Sickness No 05/15/24 09:20 HX of N/V After Surgery No 05/15/24 09:20 Non-Smoker Yes 05/15/24 09:20 Duration of Surgery greater No 05/15/24 09:20 than 60 minutes Number of Risk Factors 2 05/15/24 09:20 PONV Score Moderate Risk 05/15/24 09:20 Height & Weight Height & Weight: Anesthesia: Height & Weight Height 5 ft 2 in 05/16/24 07:41 Weight: 82 kg 05/16/24 07:41 Body Mass Index (BMI) 33.0 05/16/24 07:41 Respiratory Assessment Respiratory Assessment - safe and vault installer: Respiratory Tract Infection Hx - safe and vault installer Hx Respiratory Tract Infection No 05/15/24 09:20 STOP Sleep Apnea STOP Sleep Apnea - safe and vault installer: STOP Sleep Apnea - safe and vault installer Hx Hypertension Yes: CONTROLLED WITH MED 05/15/24 09:20 Hx Sleep Apnea No 05/15/24 09:20 CPAP No 05/15/24 09:20 BIPAP Do you snore loudly (louder No 05/15/24 09:20 than talking or can be heard Do you often feel tired/ No 05/15/24 09:20 fatigued/ sleepy during daytime? Has anyone observed you stop No 05/15/24 09:20 breathing during sleep? STOP Results Negative 05/15/24 09:20 QUESTION #5 FULL TEXT : Do you snore loudly (louder than talking or can be heard through closed doors)? Tobacco Use History Tobacco Use History - safe and vault installer: Tobacco Use History - safe and vault installer Tobacco Use Smoking Status Never smoker 05/15/24 09:20 Hx Tobacco Use No 05/15/24 09:20 Years Smoking Packs Smoked per Day Smoking Cessation Date was within the last 15 years Hx Smoking Cessation Date Hx Smoking Cessation Counseling Hematologic Medial History Hematologic Hx - safe and vault installer: Hematologic Medical Hx - jammer hooker Hx of Blood Transfusion No 05/15/24 09:20 Hx of Transfusion in last 3 No 05/15/24 09:20 Months Date of Last Transfusion (if within last 3 months) Ever experience any problems No 05/15/24 09:20 with transfusion(s)? Specify any problems Hx of Preganancy in last 3 No 05/15/24 09:20 Months Nurse Filling Out Transfusion DSCHRIBER 05/15/24 09:20 & Questions: Date: 05/15/24 05/15/24 09:20 Time: 09:21 05/15/24 09:20 Patient unable to answer at this time (ie. confused, unrespo /Reproduction History /Reproductive History - safe and vault installer: /Reproductive Hx- safe and vault installer Hx Now Gestational Age (in weeks): EDC: Hx Hx Para Hx Section SAB No 05/15/24 09:20 PFSH Medical History Wears glasses Cancer Post-menopausal Anxiety Alcohol use Arthritis High cholesterol Back pain History of hiatal hernia Gastric reflux Non-smoker History of edema History of stress test Cardiology follow-up encounter Glaucoma History of arteriovenous malformation (AVM) Rectal bleeding Adenoid cystic carcinoma Blood in stool Constipation Atherosclerotic heart disease of [place] coronary artery with other forms of angina pectoris HTN (hypertension) Home Medications ?Medication ?Instructions ?Recorded ?Last Taken ?Type amlodipine 10 mg tablet 10 mg PO DAILY BP 04/01/18 05/16/24 History calcium carbonate 1,200 mg PO DAILY supplement 04/01/18 03/31/18 History multivitamin with folic acid 400 1 tab PO DAILY supplement 04/01/18 03/31/18 History mcg tablet olmesartan 20 mg tablet 20 mg PO DAILY BP 04/01/18 05/16/24 History simvastatin 20 mg tablet 20 mg PO QHS cholesterol 04/01/18 03/31/18 History cholecalciferol (vitamin D3) 10 400 unit PO DAILY 04/19/19 Unknown History mcg (400 unit) tablet trazodone 100 mg tablet 100 mg PO QHS 01/22/24 Unknown History latanoprost 0.005 % eye drops 1 drp RIGHT EYE DAILY 04/16/24 Unknown History omeprazole 20 mg capsule,delayed 20 mg PO DAILY 04/16/24 05/16/24 History release Allergy/AdvReac Type Severity Reaction Status Date / Time losartan AdvReac Severe Fatigue, Verified 05/16/24 07:40 cough, and chest pain Family History Father CAD (coronary artery disease) <55 Heart disease Hypertension Brother CAD (coronary artery disease) Heart disease Mother Pancreatic cancer Surgical History Hx of right cataract extraction Hx of left cataract extraction Hx of colonoscopy History of tonsillectomy and adenoidectomy Hx of dilation and curettage Hx of local excision of skin lesion History of left heart catheterization (04/03/18) Social History Smoking Status: Never smoker second hand exposure: No alcohol intake: current alcohol intake frequency: holidays/special occasions only substance use type: does not use caffeine: Yes what type of physical activity do you participate in: walking and other frequency: 1-2 times per week seatbelt use: always Review of Systems (Anesthesia) ROS Narrative System reviewed and no additional complaints, except as documented.
--- NOTE | 2024-05-16 09:00 | COLBX_PTH ---
PATIENT: ИРИНА MAIER LOC: EN U#:[id number] AGE/SX: 78/F ROOM: RE05/16/[address]: Dr. Jazmyne Kirkpatrick MD : 1945 BED: DIS: 05/16/2024 SPEC #: [id number] RECD: 05/16/24 11:20 STATUS: ALMAZ ARASH #: [id number] KRISTY: 05/16/24 09:[address]: Jazmyne Kirkpatrick DEPT: SURGICAL PATHOLOGY RECD BY: Lizzy Beal ENTERED: 05/16/24 13:18 SP TYPE: COLON BX CRUZ DR: Dr. Rolo Chin MD Tissues: A - COLON BIOPSY B - COLON BIOPSY C - Transverse colon Procedures: Surgery Specimen Level IV HEADER OPERATION: Colonoscopy, polypectomy, biopsy PRE-OP DIAGNOSIS: Personal history of colon polyps TISSUE SUBMITTED: A- Transverse colon polyp, B- Ileo-cecal valve polyp biopsy, C- Ascending polyp biopsy MICROSCOPIC DIAGNOSIS A. Transverse colon polyp, polypectomy: Tubular adenoma. B. Ileo-cecal valve polyp, biopsy: Tubular adenoma. C. Ascending colon polyp, biopsy: Fragments of tubular adenoma. [facility] 05/17/2024 MICROSCOPIC DESCRIPTION Slides are reviewed. GROSS DESCRIPTION A. Received in fixative is one container labeled with the patient's name and designated Transverse colon polyp biopsy. The specimen consists of one irregular fragment of light rubi soft tissue that measures 0.3 x 0.3 x 0.1 cm. The specimen is totally submitted in one cassette. B. Received in fixative is one container labeled with the patient's name and designated Ileo-cecal valve polyp biopsy. The specimen consists of one irregular fragment of light rubi soft tissue that measures 0.4 x 0.3 x 0.1 cm. The specimen is totally submitted in one cassette. C. Received in fixative is one container labeled with the patient's name and designated Ascending colon polyp biopsy. The specimen consists of two irregular fragments of light rubi soft tissue that in aggregate measure 1.0 x 0.5 x 0.3 cm. The specimen is totally submitted in one cassette. [facility] 05/16/2024 TC:1 [facility] 05/16/2024 CPT:50629x2
--- NOTE | 2024-05-16 10:28 | PCM.POST.ANE ---
Anesthesia: Postop Eval I Current Vital Signs Temperature: 97.7 F Pulse Rate: 67 Blood Pressure: 89/52 Respiratory Rate: 20 Pulse Ox: 93 Assessment Airway patent: Yes Spontaneous unlabored respirations: Yes nausea: No Vomiting: No Anesthesia Complication: No Fluid Hydration Crystalloid volume administer (ml): 10 Total IV fluid infused: 10 Progress Note Anesthesia document: Postop Eval 1 completed: Yes
--- NOTE | 2024-05-16 10:31 | OP.CCLET_ITS ---
05/16/2024 Rolo Chin MD [address] [id number] Re : Colonoscopy procedure for Marita Partida Dear Dr. Chin This procedure was performed on Thursday, May 16, 2024. My impressions and recommendations are as follows: Impressions : - One less than 5 mm polyp at the ileocecal valve, removed with a cold biopsy forceps. Resected and retrieved. - Two less than 5 mm polyps in the transverse colon and in the ascending colon, removed with a hot snare. Resected and retrieved. - Diverticulosis in the entire examined colon. - The examination was otherwise normal. Recommendations : - Discharge patient to home. - Resume previous diet. - Continue present medications. - Await pathology results. - Repeat colonoscopy in 5 years for surveillance based on pathology results. - depending on overall health at time of possible repeat My findings are described in the full procedure note, which is enclosed. If I can be of further assistance, please feel free to contact me at Doctor phone number(s): , Work: . Sincerely, MD Jazmyne Chisholm MD 05/16/2024 10:30:39 AM This report has been signed electronically.
--- NOTE | 2024-05-16 10:31 | OP.COLON_ITS ---
Patient Name: Marita Partida Procedure Date: 05/16/2024 9:26 AM Date of : 1945 Age: 78 Procedure: Colonoscopy Indications: High risk colon cancer surveillance: Personal history of colonic polyps Providers: Jazmyne Kirkpatrick MD Referring MD: Rolo Chin MD Medicines: Monitored Anesthesia Care Patient Profile: Last Colonoscopy: 5 years ago. Complications: No immediate complications. Procedure: Pre-Anesthesia Assessment: - Prior to the procedure, a History and Physical was performed, and patient medications and allergies were reviewed. The patient's tolerance of previous anesthesia was also reviewed. The risks and benefits of the procedure and the sedation options and risks were discussed with the patient. All questions were answered, and informed consent was obtained. Prior Anticoagulants: The patient has taken no anticoagulant or antiplatelet agents. ASA Grade Assessment: Per anesthesia. After reviewing the risks and benefits, the patient was deemed in satisfactory condition to undergo the procedure. After I obtained informed consent, the scope was passed under direct vision. Throughout the procedure, the patient's blood pressure, pulse, and oxygen saturations were monitored continuously. The pediatric colonoscope was introduced through the anus and advanced to the cecum, identified by the ileocecal valve. The colonoscopy was performed without difficulty. The patient tolerated the procedure well. The quality of the bowel preparation was good. Scope In: 9:32:23 AM Scope Withdrawal Time 0 hours 14 minutes 42 seconds Scope Out: 10:21:34 AM Total Procedure Duration Time 0 hours 49 minutes 11 seconds Findings: The perianal and digital rectal examinations were normal. A less than 5 mm polyp was found in the ileocecal valve. The polyp was sessile. The polyp was removed with a cold biopsy forceps. Resection and retrieval were complete. Two sessile polyps were found in the transverse colon and ascending colon. The polyps were less than 5 mm in size. These polyps were removed with a hot snare. Resection and retrieval were complete. Multiple small-mouthed diverticula were found in the entire colon. The exam was otherwise without abnormality. Impression: - One less than 5 mm polyp at the ileocecal valve, removed with a cold biopsy forceps. Resected and retrieved. - Two less than 5 mm polyps in the transverse colon and in the ascending colon, removed with a hot snare. Resected and retrieved. - Diverticulosis in the entire examined colon. - The examination was otherwise normal. Recommendation: - Discharge patient to home. - Resume previous diet. - Continue present medications. - Await pathology results. - Repeat colonoscopy in 5 years for surveillance based on pathology results. - depending on overall health at time of possible repeat Procedure Code(s): --- Professional --- 24058, PT, Colonoscopy, flexible; with removal of tumor(s), polyp(s), or other lesion(s) by snare technique 33013, 59, Colonoscopy, flexible; with biopsy, single or multiple Diagnosis Code(s): --- Professional --- Z86.010, Personal history of colonic polyps D12.0, Benign neoplasm of cecum D12.3, Benign neoplasm of transverse colon (hepatic flexure or splenic flexure) D12.2, Benign neoplasm of ascending colon K57.30, Diverticulosis of large intestine without perforation or abscess without bleeding CPT copyright 2021 [employer]. All rights reserved. The codes documented in this report are preliminary and upon medical oncologist review may be revised to meet current compliance requirements. MD Jazmyne Chisholm MD 05/16/2024 10:30:39 AM This report has been signed electronically. Number of Addenda: 0 Note Initiated On: 05/16/2024 9:26 AM
--- NOTE | 2024-05-16 11:13 | POSTOPAN2_ITS ---
Anesthesia Postop Eval I Sum Postop Eval Completion status Anesthesia document: Postop Eval 1 completed: Yes Anesthesia Postop Eval I Summary Anesthesia Postop Eval I Summary: Anesthesia Postop Eval I: Assessment Summary Airway patent Yes 05/16/24 10:28 [email or web address] Spontaneous unlabored Yes 05/16/24 10:28 [email or web address] respirations Mental status nausea No 05/16/24 10:28 [email or web address] Vomiting No 05/16/24 10:28 [email or web address] Anesthesia Postop Eval I: Fluid Summary Crystalloid volume administer 10 05/16/24 10:28 [email or web address] (ml) Colloids volume administered ( ml) Blood Product volume administered (ml) Total IV fluid infused 10 05/16/24 10:28 [email or web address] Anesthesia Postop Eval I: Summary Notes Anesthesia Complication No 05/16/24 10:28 [email or web address] Anesthesia Complication Comment: Post-operative progress note Anesthesia: Postop Eval II Evaluation Mental status: Awake Pain Level: 0 nausea: No Vomiting: No
--- NOTE | 2024-05-16 11:13 | PCM.POSTANE2 ---
Anesthesia Postop Eval I Sum Postop Eval Completion status Anesthesia document: Postop Eval 1 completed: Yes Anesthesia Postop Eval I Summary Anesthesia Postop Eval I Summary: Anesthesia Postop Eval I: Assessment Summary Airway patent Yes 05/16/24 10:28 [employer] Spontaneous unlabored Yes 05/16/24 10:28 [employer] respirations Mental status nausea No 05/16/24 10:28 [employer] Vomiting No 05/16/24 10:28 [employer] Anesthesia Postop Eval I: Fluid Summary Crystalloid volume administer 10 05/16/24 10:28 [employer]CSIR (ml) Colloids volume administered ( ml) Blood Product volume administered (ml) Total IV fluid infused 10 05/16/24 10:28 [employer] Anesthesia Postop Eval I: Summary Notes Anesthesia Complication No 05/16/24 10:28 [employer] Anesthesia Complication Comment: Post-operative progress note Anesthesia: Postop Eval II Evaluation Mental status: Awake Pain Level: 0 nausea: No Vomiting: No
== END 2024-05-16 11:01 | disposition home or self-care (01) ==
LOC: EN 07:29 → AC 07:31
PROVIDERS: PCP Family Medicine; Referring Provider Family Medicine; Visit Provider Surgery
PROC: 0DJD8ZZ Inspection of Lower Intestinal Tract, Via Natural or Artificial Opening Endoscopic (ICD-10-PCS; CPT 45378; principal; 2024-05-16 08:55)
DX: Z12.11 Encounter for screening for malignant neoplasm of colon (principal); D12.0 Benign neoplasm of cecum; D12.2 Benign neoplasm of ascending colon; D12.3 Benign neoplasm of transverse colon; K57.30 Diverticulosis of large intestine without perforation or abscess without bleeding; K21.9 Gastro-esophageal reflux disease without esophagitis; I10 Essential (primary) hypertension; E78.00 Pure hypercholesterolemia, unspecified; Z79.899 Other long term (current) drug therapy; Z86.0101 Personal history of adenomatous and serrated colon polyps; Z86.16 Personal history of COVID-19
CPT/HCPCS: 45385; 45380; 88305; A4216; J2405

== ENCOUNTER → 2024-06-21 | Outpatient (CLI) | payer MEDICARE, SELFPAY ==
[2024-06-21 10:54] LABS: Anion Gap 8 (5-15); BUN 13 mg/dL (7-18); Calcium,Total 9.6 mg/dL (8.5-10.1); Chloride 104 mmol/L (98-107); Cholesterol 154 mg/dL (200); Creatinine, Serum 0.68 mg/dL (0.55-1.02); EST Glomerular Filtration Rate 89 mL/min (>60); Est Glom Filt Rate - Afr Amer 107 mL/min (>60); Glucose 104 mg/dL (74-106); High Density Lipoprotein 63 mg/dL; Potassium 3.9 mmol/L (3.5-5.1); Sodium Level 137 mmol/L (136-145); Triglycerides 166 mg/dL; Very Low Density Lipoprotein 33 mg/dL (5-40)
== END | disposition home or self-care (01) ==
LOC: MFPLAB 08:59
PROVIDERS: PCP Family Medicine; Referring Provider Family Medicine; Visit Provider Family Medicine
DX: E78.5 Hyperlipidemia, unspecified (principal); I10 Essential (primary) hypertension
CPT/HCPCS: 36415; 80048; 80061

== ENCOUNTER 2024-10-10 09:15 | Emergency (ER) | payer MEDICARE, SELFPAY ==
[2024-10-10 09:16] VITALS: BP 128/83; PULSE 95; RESP 16; TEMP 36.7; O2SAT 98; BMI 34.5
--- NOTE | 2024-10-10 09:18 | RAD_ITS ---
PROCEDURE: CHEST PA AND LATERAL REASON FOR EXAM: Cough TECHNIQUE: PA and lateral views of the chest. COMPARISON: 04/01/2016. FINDINGS: Heart: Unremarkable. Mediastinum: Unremarkable. Lungs/pleura: No convincing focal consolidation allowing for chest wall attenuation. No sizeable pleural effusion or visible pneumothorax. Bones: Multilevel spondylosis. Mild thoracolumbar levoscoliosis and trace cervicothoracic dextroscoliosis.. Lines and support devices: None. RAD/Chest PA and Lateral IMPRESSION: 1. No visible acute cardiopulmonary findings. 2. Additional description as above. Reading Location: [id number]
[2024-10-10 10:15] VITALS: O2SAT 98
--- NOTE | 2024-10-10 10:30 | EX.ED.VIS.UR ---
HPI HPI - URI History of Present Illness Chief Complaint: Cough Informant: patient and spouse/S.O. Onset/Context/Timing Onset: Today and Yesterday Context: Gradual Onset Timing: Continuous Current Severity: Mild Maximum Severity: Mild Associated Symptoms Associated Symptoms: Positive for Myalgias and Productive Cough (Clear sputum.); Negative for Nausea, Vomiting or Diarrhea Narrative Narrative: Healthy 79-year-old female history of hypertension. Has had a productive cough of clear sputum the last 2 days. Body aches. No vomiting or diarrhea. Prior similar symptoms: Yes Recent Illness/Hospitalization: No ROS ROS ED ROS Narrative Cough of clear sputum. Body aches. Constitutional Constitutional ED: Denies chills or fever(s) Eyes Eyes: Denies blurry vision ENT ENT ED: Denies ear pain Cardiovascular Cardiovascular: Denies chest pain Respiratory/Chest Respiratory/Chest: Reports cough and sputum Gastrointestinal Gastrointestinal: Denies abdominal pain Genitourinary Genitourinary ED: Denies dysuria or hematuria Musculoskeletal Musculoskeletal: Denies arthralgias Integumentary Denies abscess Neurologic Neurologic: Denies headache(s) Psychiatric Psychiatric: Denies anxiety or depression Endocrine Endocrinology: Denies cold intolerance Hematologic/Lymphatic Hematologic/Lymphatic: Denies easy bleeding, easy bruising or lymphadenopathy Allergic/Immunologic Allergic/Immunologic ED: Denies mouth swelling, tongue swelling or urticaria PFSH PFSH Medical History Wears glasses Cancer Post-menopausal Anxiety Alcohol use Arthritis High cholesterol Back pain History of hiatal hernia Gastric reflux Non-smoker History of edema History of stress test Cardiology follow-up encounter Glaucoma History of arteriovenous malformation (AVM) Rectal bleeding Adenoid cystic carcinoma Blood in stool Constipation Atherosclerotic heart disease of [place] coronary artery with other forms of angina pectoris HTN (hypertension) Home Medications ?Medication ?Instructions ?Recorded ?Last Taken ?Type amlodipine 10 mg tablet 10 mg PO DAILY BP 04/01/18 05/16/24 History calcium carbonate 1,200 mg PO DAILY supplement 04/01/18 03/31/18 History multivitamin with folic acid 400 1 tab PO DAILY supplement 04/01/18 03/31/18 History mcg tablet olmesartan 20 mg tablet 20 mg PO DAILY BP 04/01/18 05/16/24 History simvastatin 20 mg tablet 20 mg PO QHS cholesterol 04/01/18 03/31/18 History cholecalciferol (vitamin D3) 10 400 unit PO DAILY 04/19/19 Unknown History mcg (400 unit) tablet trazodone 100 mg tablet 100 mg PO QHS 01/22/24 Unknown History latanoprost 0.005 % eye drops 1 drp RIGHT EYE DAILY 04/16/24 Unknown History omeprazole 20 mg capsule,delayed 20 mg PO DAILY 04/16/24 05/16/24 History release azithromycin 250 mg tablet See Rx Instructions PO .COMPLEX #6 10/10/24 Unknown Rx (Zithromax Z-Homar) tabs Allergy/AdvReac Type Severity Reaction Status Date / Time losartan AdvReac Severe Fatigue, Verified 10/10/24 09:18 cough, and chest pain Family History Father CAD (coronary artery disease) <55 Heart disease Hypertension Brother CAD (coronary artery disease) Heart disease Mother Pancreatic cancer Surgical History Hx of right cataract extraction Hx of left cataract extraction Hx of colonoscopy History of tonsillectomy and adenoidectomy Hx of dilation and curettage Hx of local excision of skin lesion History of left heart catheterization (04/03/18) Social History Smoking Status: Never smoker second hand exposure: No alcohol intake: current alcohol intake frequency: holidays/special occasions only substance use type: does not use caffeine: Yes what type of physical activity do you participate in: walking and other frequency: 1-2 times per week seatbelt use: always EXAM Physical Exam Narrative Exam Narrative: 79-year-old female vital signs stable afebrile. Pulse ox 98% on room air no hypoxia. She is in a hallway chair due to volume currently the emergency department. Patient is in no distress. HEENT exam pupils round react to light. Moist mucous membranes. Neck nontender no JVD. No lymphadenopathy. Lungs clear to auscultation bilaterally. No rales rhonchi or wheezing. Dry cough. Heart regular rhythm rate about 90 no murmur. Chest wall ribs nontender. Abdomen soft nontender. Moving all 4 extremities. Normal strength. No edema. Back nontender. Neurologically she is awake and alert no focal motor deficits. Answering questions following commands. Exam benign. Const Vital Signs: 10/10/24 09:16 10/10/24 10:15 Temperature 98.1 F Temperature Source Oral Pulse Rate 95 Respiratory Rate 16 Respiratory Effort Short of Breath Blood Pressure 128/83 H Blood Pressure Mean 98 Pulse Ox 98 Oxygen Delivery Method Room Air Positive well nourished and well developed; Negative for cachectic or contractures General Appearance ED: well developed and NAD; Negative for cachectic, contractures, cyanotic, diaphoretic or pallor Nutritional Appearance: Negative for cachectic HEENT Reports moist mucous membranes normocephalic and atraumatic Throat: posterior oropharynx normal Eyes PERRL and EOMs intact bilaterally General Eye ED: Negative for pale conjunctiva or scleral icterus Neck no lymphadenopathy, supple, no meningeal signs and no JVD General: Negative for anterior neck swelling or lymphadenopathy Resp normal respiratory effort and clear to auscultation bilaterally Effort and Inspection: Negative for retractions Auscultation: Negative for rales, rhonchi, wheezes or diminished lung sounds Cardio S1 normal heart sound, S2 normal heart sound and no murmurs Rate: regular rate Rhythm: regular rhythm GI non-tender, non-distended and no masses Auscultation: normoactive bowel sounds Palpation: soft; Negative for tender or guarding Back/Spine no CVA tenderness and normal ROM General Back: Negative for CVA tenderness Cervical Spine: Negative for cervical spine tenderness Thoracic Spine / Upper Back: Negative for thoracic spinal tenderness Lumbar Spine / Lower Back: Negative for lumbar spinal tenderness Sacrum: Negative for tenderness Extremity normal to inspection and full ROM General Extremety ED: Negative for cyanosis or tenderness General Extremity: Negative for cyanosis Neuro oriented x3 and CN's II-XII intact bilaterally Sensorium / Orientation: alert, oriented to person, oriented to place and oriented to time; Negative for orientation impaired, lethargic or stuporous Motor Exam: strength 5/5 throughout Psych mental status grossly normal Mood & Affect: Negative for depressed, anxious or tearful Skin General Skin Exam: Negative for jaundice or pallor Lesions: no lesions Rashes: no rashes Trauma: Negative for abrasion or laceration MDM MDM MDM Narrative Medical decision making narrative: -year-old female URI symptoms. Chest x-ray is -2 views. COVID and flu negative. Treated as a viral URI. History & Record Review Discussion w/independent historian: Patient Additional record(s) reviewed:: Prior inpatient record, Prior outpatient record and Prior ED visit Lab Data Attestation: I reviewed the patient's lab results. Lab results narrative: COVID, flu and RSV negative. Radiography Chest X-Ray - ED: 2 View, Read by ED Physician, Read by Radiologist, Normal, Heart, Lungs, Mediastinum, Bony Structures, No Acute Disease and Chronic Changes Diagnostic Testing: Clinical Impression(s) from Imaging Studies Chest X-Ray 10/10/24 09:18 IMPRESSION: 1. No visible acute cardiopulmonary findings. 2. Additional description as above. Reading Location: [facility] Chest x-ray, 2 views, AP and lateral, interpreted by myself and the radiologist is no acute abnormality. Normal cardiac silhouette. Normal lung jj. No pneumonia. No infiltrate. No effusion. Discharge Plan Triage Chief Complaint: Cough ED Provider: Yury Carlson Dx/Rx/DC Orders Clinical Impression: Viral URI with cough Instructions: ED URI, Viral, No Abx (Adult) Prescriptions: New azithromycin [Zithromax Z-Homar] 250 mg tablet See Rx Instructions .ROUTE .COMPLEX Qty: 6 0RF Rx Instructions: For 250 mg dose pack: take 500 mg today (day 1), then 250 mg for 4 days (days 2-5) No Action cholecalciferol (vitamin D3) 400 unit tablet 400 unit PO DAILY trazodone 100 mg tablet 100 mg PO QHS calcium carbonate 600 MG tablet 1,200 mg PO DAILY amlodipine 10 MG tablet 10 mg PO DAILY simvastatin 20 MG tablet 20 mg PO QHS olmesartan 20 MG tablet 20 mg PO DAILY multivitamin with folic acid 1 TABLET tablet 1 tab PO DAILY latanoprost 0.005 % drops 1 drp RIGHT EYE DAILY omeprazole 20 mg capsule,delayed release(DR/EC) 20 mg PO DAILY Primary Care Provider: Rolo Chin Referrals: Rolo Chin MD [Primary Care Provider] - 1 Week if not improving Activity Restrictions/Additional Instructions: Most likely you have a viral respiratory infection and will not need any antibiotic. There is no pneumonia on your chest x-ray. Your COVID, flu and RSV test is negative. Plenty of fluids and rest. Tylenol for any fever and body aches. Follow-up with your doctor if not improving. If you not start to feel better in 3 to 4 days you can start the antibiotic. The most likely this is a virus and you do not need it. Print Language: [place] Disposition Disposition: Home, Self Care
[2024-10-10 10:53] VITALS: O2SAT 98
== END 2024-10-10 10:53 | disposition home or self-care (01) ==
PROVIDERS: Emergency Provider Emergency Medicine; PCP Family Medicine; Visit Provider Emergency Medicine
DX: J06.9 Acute upper respiratory infection, unspecified (principal); I25.10 Atherosclerotic heart disease of native coronary artery without angina pectoris; I10 Essential (primary) hypertension; E78.00 Pure hypercholesterolemia, unspecified; Z79.899 Other long term (current) drug therapy
CPT/HCPCS: 71046; 87631; 99282

== ENCOUNTER → 2024-12-14 | Outpatient (CLI) | payer MEDICARE, SELFPAY ==
[2024-12-14 10:57] LABS: ALB/GLOB Ratio 1.4 RATIO (0.9-2.4); AST(SGOT) 26 U/L (<=31); Alanine Aminotransfer ALT/SGPT 21 U/L (<=34); Albumin, Serum 4.8 g/dL (3.4-4.8); Alkaline Phosphatase 47 U/L (35-104); Anion Gap 14 (5-15); BUN 15 mg/dL (4-19); BUN/Creat Ratio 20.8 RATIO (10-20); Calcium,Total 10.1 mg/dL (7.6-11.0); Chloride 101 mmol/L (98-108); Cholesterol 165 mg/dL (<=200); Creatinine, Serum 0.73 mg/dL (0.70-1.20); EST Glomerular Filtration Rate 85 (>60); Globulin 3.4 g/dL (2.2-4.2); Glucose 108 mg/dL (70-99); High Density Lipoprotein 60 mg/dL; Low Density Lipoprotein Calc. 74 mg/dL; Protein, Total 8.2 g/dL (5.9-8.4); Sodium Level 139 mmol/L (133-145); Triglycerides 158 mg/dL; Very Low Density Lipoprotein 32 mg/dL (5-40); cholesterol:hdl ratio screen 2.76
== END | disposition home or self-care (01) ==
LOC: MFPLAB 08:51
PROVIDERS: PCP Family Medicine; Referring Provider Family Medicine; Visit Provider Family Medicine
DX: I10 Essential (primary) hypertension (principal); F32.A Depression, unspecified
CPT/HCPCS: 36415; 80053; 80061; 84443

== ENCOUNTER → 2025-03-20 | Outpatient (CLI) | payer MEDICARE, SELFPAY ==
--- NOTE | 2025-03-20 07:59 | BI_ITS ---
EXAM: SCRN MAMM (CAD)W/MUKUL BILAT DATE: 03/20/2025 CLINICAL HISTORY: F, Age 79 y/o , ANNUAL TECHNIQUE: SCRN MAMM (CAD)W/MUKUL BILAT COMPARISON: Prior exam(s) dated March 02, 2024.. FINDINGS: TISSUE DENSITY: There are scattered areas of fibroglandular density. Bilateral Breast Mammographic Findings: No significant masses, calcifications or other abnormalities are identified. Stable small benign-appearing bilateral axillary lymph nodes. No suspicious masses, areas of developing architectural distortion, or suspicious calcifications. There has been no significant interval change. BI/SCRN MAMM (CAD)W/MUKUL BILAT IMPRESSION: Stable examination. OVERALL FINAL ASSESSMENT BI-RADS 2: BENIGN RECOMMENDATION: Routine annual follow-up in 1 Year A letter with findings and recommendations will be mailed to the patient. Reading Location: [id number]
== END | disposition home or self-care (01) ==
LOC: OPBI 07:58
PROVIDERS: PCP Family Medicine; Referring Provider Family Medicine; Visit Provider Family Medicine
DX: Z12.31 Encounter for screening mammogram for malignant neoplasm of breast (principal)
CPT/HCPCS: 77063; 77067

== ENCOUNTER → 2025-07-01 | Outpatient (CLI) | payer MEDICARE, SELFPAY ==
[2025-07-01 15:50] LABS: Anion Gap 14 (5-15); BUN 13 mg/dL (4-19); BUN/Creat Ratio 18.2 RATIO (10-20); Calcium,Total 9.8 mg/dL (7.6-11.0); Carbon Dioxide 24.7 mmol/L (21.0-32.0); Chloride 97 mmol/L (98-108); Cholesterol 175 mg/dL (<=200); Glucose 90 mg/dL (70-99); Low Density Lipoprotein Calc. 87 mg/dL; Potassium 3.8 mmol/L (3.3-5.1); Triglycerides 167 mg/dL; Very Low Density Lipoprotein 33 mg/dL (5-40); cholesterol:hdl ratio screen 2.91
== END | disposition home or self-care (01) ==
LOC: MFPLAB 11:37
PROVIDERS: PCP Family Medicine; Visit Provider Family Medicine
DX: E78.5 Hyperlipidemia, unspecified (principal)
CPT/HCPCS: 36415; 80048; 80061